=== PATIENT | male | born 1960 | race Hispanic/Latino ===

== ENCOUNTER 2018-08-01 18:51 | Inpatient (IN) | payer OTHER ==
[~2018-08-01] VITALS: Ht 167.6 cm; Wt 72.7 kg
[2018-08-01] MEDS ORDERED: CEFAZOLIN SOD 1 GM/NS 50ML 50 ML IV ONE ×2 (19:44→20:45)
[2018-08-01] MEDS ORDERED: ONDANSETRON HCL INJ 2MG/ML 2ML 2 MG/ML VIAL ONE (19:44)
[2018-08-01] MEDS ORDERED: MORPHINE SULFATE 2 MG/ML SYR 1ML IV STA (19:52)
--- NOTE | 2018-08-01 20:26 | Diagnostic Imaging Report ---
Radiographs of the right foot - 3 views HISTORY: Pain COMPARISON: None available. FINDINGS: Bones: Comminuted intra-articular fracture involving the distal portion of the proximal phalanx of the right first toe. Comminuted displaced intra-articular fracture involving the proximal portion of the middle phalanx of the right second toe. The second toe is subluxed laterally at this joint. Comminuted mid shaft right third middle phalanx fracture. Joints: Scattered degenerative change. No osseous erosion. Posterior and inferior calcaneal bone spurs Soft tissues: Soft tissue swelling IMPRESSION: First, second and third toe fractures as described above with soft tissue swelling. Signed by: Dr. Abdullahi Mccray M.D. on 08/01/2018 8:22 PM
[2018-08-01] MEDS ORDERED: ONDANSETRON HCL INJ 2MG/ML 2ML 2 MG/ML VIAL IV STA (20:38)
[2018-08-01] MEDS ORDERED: TETANUS/DIPHTHERIA TOX ADULT 0.5 ML SYR IM ONE (20:45)
[2018-08-01] MEDS ORDERED: TETANUS/DIPHTHERIA TOX ADULT 0.5 ML SYR ONE (20:45)
[2018-08-01] MEDS ORDERED: KETOROLAC TROMETHAMINE 30 MG/ML VIAL ONE (20:45)
[2018-08-01] MEDS ORDERED: MORPHINE SULFATE INJ 4 MG/ML INJ 1ML IV PRN (21:15)
[2018-08-01] MEDS ORDERED: HYDROMORPHONE 1MG/1ML INJ IV PRN (21:30)
[2018-08-01] MEDS ORDERED: SODIUM CHLORIDE FLUSH 10 ML SYR INJ PRN (21:30)
--- OUTSIDE RECORDS SUMMARY | 2018-08-01 21:44 | XMS REPORT ---
[facility] Address Unknown Phone Unavailable Care Team Providers Care Corrosion Control Technician Name Role Phone Brennan SCHROEDER Unavailable Unavailable Problems This patient has no known problems. Allergies, Adverse Reactions, Alerts This patient has no known allergies or adverse reactions. Medications This patient has no known medications. Results Test Description Test Time Test Comments Text Results Atomic Results Result Comments FOOT 3 VIEW RT - [facility] 2018-08-01 20:19:00 [place] [address] Patient Name: ROBYN KERR MR #: [id number] : 1960 Age/Sex: 57/M Req #: [id number] [facility] Physician: Ordered by: KALEN SCHROEDER MD Report #: [id number] Location: [facility] Room/Bed: Procedure: [id number] HOPD/FOOT 3 VIEW RT - [facility] Exam Date: 08/01/18 Exam Time: 2004 REPORT STATUS: Signed Radiographs of the right foot - 3 views HISTORY: Pain COMPARISON: None available. FINDINGS: Bones: Comminuted intra-articular fracture involving the distal portion of the proximal phalanx of the right first toe. Comminuted displaced intra-articular fracture involving the proximal portion of the middle phalanx of the right second toe. The second toe is subluxed laterally at this joint. Comminuted mid shaft right third middle phalanx fracture. Joints: Scattered degenerative change. No osseous erosion. Posterior and inferior calcaneal bone spurs Soft tissues: Soft tissue swelling IMPRESSION: First, second and third toe fractures as described above with soft tissue swelling. Signed by: Dr. Abdullahi Mccray M.D. on 08/01/2018 8:22 PM Dictated By: ABDULLAHI MCCRAY MD, MD 21 Transcribed By: JOSÉ on 08/01/182021 COPY TO: KALEN SCHROEDER MD
[2018-08-01 21:59] VITALS: BP 138/74
--- NOTE | 2018-08-01 21:59 | NUR ---
RECEIVED PATIENT FROM [facility]. PATIENT IS A&OX3. LUNG SOUNDS CLEAR. BOWEL SOUNDS ACTIVE. L AC 20G IV ASYMPTOMATIC, INTACT, AND PATENT. PAIN RATED AT 7/10. R GREAT TOE, 2ND, AND 3RD TOES BRUISED. CAP REFILL <3 SEC. MINIMAL SWELLING NOTED. NO S&S OF DISTRESS NOTED. BED LOCKED IN LOWEST POSITION, SIDE RAILS UP X2, CALL LIGHT IN REACH.
[2018-08-01] MEDS: ONDANSETRON HCL INJ 2MG/ML 2ML 2 MG/ML VIAL IV PRN (22:47)
[2018-08-01] MEDS: HYDROMORPHONE 2MG/ML 2 MG/ML ML IV PRN (22:47)
[2018-08-02] VITALS: BP 126/69
--- NOTE | 2018-08-02 00:50 | NUR ---
PATIENT STATES PAIN IS SLIGHTLY BETTER, BUT STILL RATES AT 7/10. PATIENT STATED HE WANTS TO WAIT ON GETTING NEXT DOSE OF PAIN MEDICATION IT DID NOT DO MUCH AND JUST TRY TO SLEEP.
[2018-08-02] MEDS ORDERED: SODIUM CHLORIDE 0.9% 250ML 250 ML ONE (00:52)
[2018-08-02] MEDS: CEFAZOLIN SOD 1 GM/NS 50ML 50 ML IV SCH ×3 (01:01→12:20)
[2018-08-02 04:00] VITALS: BP 115/67
[2018-08-02] MEDS: HYDROMORPHONE 2MG/ML 2 MG/ML ML IV PRN ×4 (04:40→14:55)
--- NOTE | 2018-08-02 04:40 | NUR ---
PATIENT STATES PAIN IS 7/10. BRISK CAP REFILL TO R TOES. NO S&S OF DISTRESS NOTED.
[2018-08-02] MEDS: ONDANSETRON HCL INJ 2MG/ML 2ML 2 MG/ML VIAL IV PRN ×4 (04:49→15:06)
[2018-08-02 06:41] LABS: BASOPHILS % 0.4 % (0.0-1.0); EOSINOPHILS # (AUTO) 0.1 (0.0-0.4); EOSINOPHILS % 1.3 % (0.0-6.0); HEMATOCRIT 50.9 % (38.2-49.6); HEMOGLOBIN 17.4 g/dL (14.0-18.0); LYMPHOCYTES % 26.9 % (18.0-39.1); MEAN CORPUSCULAR HEMOGLOBIN 29.7 pg (28-32); MEAN CORPUSCULAR HGB CONC 34.2 g/dL (31-35); MEAN CORPUSCULAR VOLUME 86.9 fL (81-99); MONOCYTES % 8.6 % (4.4-11.3); NEUTROPHILS % 62.4 % (38.7-80.0); PLATELET COUNT 236 x10e3/uL (140-360); RED BLOOD COUNT 5.86 x10e6/uL (4.3-5.7); RED CELL DISTRIBUTION WIDTH 12.9 % (11.7-14.4)
[2018-08-02 06:48] LABS: INR 0.89; PARTIAL THROMBOPLASTIN TIME 29.2 seconds (23.8-35.5); PROTHROMBIN TIME 12.5 seconds (11.9-14.5)
[2018-08-02 06:52] LABS: ANION GAP 11.4 mmol/L (8-16); BLOOD UREA NITROGEN 15 mg/dL (7-26); BUN/CREATININE RATIO 18 (6-25); CARBON DIOXIDE 21 mmol/L (22-29); CHLORIDE 108 mmol/L (98-107); CREATININE, SERUM 0.82 mg/dL (0.72-1.25); EST GLOMERULAR FILTRATION RATE > 60 ML/MIN (60-); GLUCOSE 109 mg/dL (74-118); POTASSIUM 4.4 mmol/L (3.5-5.1); SODIUM 136 mmol/L (136-145)
--- NOTE | 2018-08-02 07:00 | NUR ---
bedside rounds complete no distress noted updated on poc voiced understanding, denies pain at this time, right foot with bruising to 2nd and 3rd toe, wound noted to right lateral foot, l ac 20g no ss of infiltration noted, no other co vocied call light in reach will continue to monitor
[2018-08-02 07:27] VITALS: BP 120/70
[2018-08-02 09:30] VITALS: BP 120/70
--- NOTE | 2018-08-02 09:30 | NUR ---
ASSESSMENT COMPLETE NO DISTRESS NOTED, RIGHT BIG TOE, 2ND AND 3RD TOES NOTED WITH BRUISING, COOL TO TOUCH,QUICK REFILL NOTED TO TOES, PEDAL PULSES PALPABLE, L AC 20G SL NO SS OF INFILTRATION NOTED, DENIES PAIN AT THIS TIME, CALL LIGHT IN REACH WILL CONTINUE OT MONITOR
--- NOTE | 2018-08-02 11:20 | NUR ---
Per Dr Funmilayo escalante to DC from Podiatry standpoint
--- NOTE | 2018-08-02 12:46 | NUR ---
wound care performed as per ordered, right foot cleansed with normal saline, antibiotic ointment applied to wound, covered with 4x4 gauze, kerlix and secured with toño wrap, pt tolerated well
--- NOTE | 2018-08-02 12:50 | NUR ---
ortho boot and crutches provided as per dr harvey orders. pt to be instructed by physical therapy for crutch training
[2018-08-02 13:00] VITALS: BP 125/70
--- NOTE | 2018-08-02 14:10 | History and Physical ---
REASON FOR CONSULTATION: Comminuted fractures of digits 1, 2, and 3 right foot with possible open fracture. HISTORY OF PRESENT ILLNESS: This is a 57-year-old male, who presented to the ER for possible fractures of the right foot. He states that he dropped the heavy object at work on his right foot, which resulted in significant pain and swelling in the right foot of first, second, and third digits. He presented to the ER for significant pain and swelling. On admission, he denied any nausea, fever, chills, vomiting, or night sweats, however, he does admit to significant amount of pain. PAST MEDICAL HISTORY: None. PAST SURGICAL HISTORY: None. SOCIAL HISTORY: The patient denies any tobacco abuse, alcohol use, or any illicit drug use at this point. ALLERGIES: NO KNOWN DRUG ALLERGIES. MEDICATIONS: See MAR. LABORATORY DATA: Reviewed. RADIOGRAPHICS: Reviewed, which showed a comminuted fracture of the right foot hallux proximal phalanx, intra-articular; comminuted displaced intra-articular fracture involving the proximal portion of the middle phalanx of the second toe, and also a right third digit middle phalanx shaft fracture. There is no soft tissue emphysema or cortical erosions noted at this time. PHYSICAL EXAMINATION: VITAL SIGNS: Reviewed. GENERAL: The patient was seen lying in bed, in no acute distress. Dressings are clean, dry, and intact to the right foot. HEAD: Normocephalic. CHEST: Denies any chest pain. LUNGS: Denies any shortness of breath. ABDOMEN: Soft and nontender. EXTREMITIES: Lower extremity evaluation, palpable pulses to the dorsalis pedis, posterior tibial pulse. There was significant edema with cyanotic discoloration noted of the right hallux, however, cap refill time is less than 5 seconds for digits 1, 2, and 3. The right hallux is noted to be cool to touch, however, the patient does state he is able to move and feel the right hallux. Cyanotic discoloration is noted up to the metatarsophalangeal joint of the first digit and approximately the distal interphalangeal joint of the second toe. Significant pain on palpation and range of motion of digits 1, 2, and 3 right foot. ASSESSMENT: Comminuted fractures with laceration of the right foot digits 1, 2, and 3. PLAN: At this point, I would recommend a mupirocin with a dry dressing to the right foot. The patient is to be absolutely non-weightbearing to the right lower extremity. I have discussed the fact that there may be an underlying arterial injury to the right hallux. At this point, we will keep the patient non-weightbearing, wait and see if the area begins to demarcate. We will plan for surgery, however, surgery will be postpone for at least 10 days to reduce the swelling, also to see if the first digit is salvageable or not. At this point, I have recommended discharge and followup with me in clinic. The patient is to be non-weightbearing in a fracture boot with crutches. I have recommended physical therapy to come and train the patient non-weightbearing. Resume regular diet. The patient will also be discharged home with oral antibiotics, clindamycin and Cipro x1 week and Randolph 7.5 mg for pain control. At this time, Podiatry will sign off. Please reconsult if services are required. Thank you again for including in the care of this patient. ABBY Dumont/TAHIRA /[id number]
--- NOTE | 2018-08-02 15:18 | NUR ---
spoke with Dr Cilfford re: discharge, new orders noted.
[2018-08-02] MEDS ORDERED: NORCO 7.5-3251 EACH PO (15:57)
[2018-08-02] MEDS ORDERED: CIPRO500 MG PO (15:58)
[2018-08-02] MEDS ORDERED: CLINDAMYCIN HC150 MG PO (15:58)
[2018-08-03] MEDS ORDERED: MUPIROCIN 2% OINT 22 GM TUBE TOP SCH (09:00)
--- NOTE | 2018-08-03 09:48 | Discharge Summary ---
DISCHARGE DIAGNOSIS: Fracture of the 1st great toes with a work-related injury, crush injury. HISTORY OF PRESENT ILLNESS AND HOSPITAL COURSE: See hospital chart for full details. The patient is a 57-year-old gentleman, who sustained a falling object onto his right foot that fractured and crushed the first three toes of his right foot. He was admitted for pain control and he was seen by Dr. Mello, who accepted the patient from an outside facility and reviewed the case with the patient and deemed the patient not needing surgery at the moment, so he is able to be discharged home with some pain medicines and walking boot per Dr. Mello and he will follow up with him on Saturday the day after for further evaluation and treatment. Please see hospital chart for full details. MD AMY Rowe/TAHIRA /[id number]
== END 2018-08-02 16:17 | disposition home or self-care (01) | DRG 914 ==
LOC: FSED 18:51 → ERHOLD 21:36 → MED/SURG 22:02
PROVIDERS: ADMIT Internal Medicine; ATTEND Internal Medicine
PROC: 3E0234Z Introduction of Serum, Toxoid and Vaccine into Muscle, Percutaneous Approach (ICD-10-PCS; principal; 2018-08-01)
DX: S97.111A Crushing injury of right great toe, initial encounter (principal); S92.411B Displaced fracture of proximal phalanx of right great toe, initial encounter for open fracture; S92.521A Displaced fracture of middle phalanx of right lesser toe(s), initial encounter for closed fracture; S97.121A Crushing injury of right lesser toe(s), initial encounter; W31.89XA Contact with other specified machinery, initial encounter; Y93.89 Activity, other specified; F17.210 Nicotine dependence, cigarettes, uncomplicated; Y92.69 Other specified industrial and construction area as the place of occurrence of the external cause; Y99.0 Civilian activity done for income or pay; Z23 Encounter for immunization
CPT/HCPCS: 36415; 80048; 80053; 82948; 85025; 85610; 85730; 90714; 99284; J0690; J1170; J1885; J2270; J2405; J7050

== ENCOUNTER → 2018-08-12 | Day surgery (SDC) | payer OTHER ==
--- NOTE | 2018-08-06 13:33 | Diagnostic Imaging Report ---
EXAMINATION: PA and lateral views of the chest. COMPARISON: None CLINICAL HISTORY: Preoperative study for orthopedic procedure DISCUSSION: Lines/tubes: None. Lungs: The lungs are well inflated and clear. There is no evidence of pneumonia or pulmonary edema. Pleura: There is no pleural effusion or pneumothorax. Heart and mediastinum: The cardiomediastinal silhouette is normal. Bones and soft tissues: No acute bony abnormalities. Degenerative changes in the thoracic spine IMPRESSION: No acute cardiopulmonary abnormalities. Signed by: Dr. Omar Vee M.D. on 08/06/2018 1:30 PM
[~2018-08-12] MED LIST: ACETAMINOPHEN 1000 MG/100 ML IV ONE; BUPIVACAINE HCL 0.5% INJ 30 ML VIAL INJ ONE; CEFAZOLIN SOD 1 GM/NS 50ML 50 ML IV ONE; CIPRO500 MG PO; CLINDAMYCIN HC150 MG PO; DEXAMETHASONE SOD PHOS INJ 4 MG/ML VIAL ONE; FENTANYL CITRATE/PF 100MCG/2 ML INJ ONE; LIDOCAINE HCL 2% LOCAL INJ 5 ML SDV VIAL INJ ONE; MEPERIDINE HCL INJ 25 MG/ML VIAL ONE; MIDAZOLAM HCL 2 MG/2 ML VIAL ONE; MORPHINE SULFATE INJ 10 MG/ML ONE; MUPIROCIN 2% OINT 22 GM TUBE ONE; NORCO 7.5-3251 EACH PO; ONDANSETRON HCL INJ 2MG/ML 2ML 2 MG/ML VIAL ONE; PROPOFOL IV EMULSION 10 MG/ML 20 ML VIAL ONE; SEVOFLURANE INHAL SOLN 250 ML PEN BTL ONE
[2018-08-12 14:45] VITALS: BP 128/81
--- NOTE | 2018-08-14 20:38 | Operative Report ---
DATE OF PROCEDURE: 08/12/2018 SURGEON: Omar Rodríguez MD OIL SEPARATOR: Yandel Medeiros PREOPERATIVE DIAGNOSES: Right great toe proximal phalanx fracture, dislocation of right second toe PIP joint. PROCEDURE: Closed reduction and percutaneous pin fixation of right great toe and right second toe. INDICATIONS: The patient is a 57-year-old gentleman, who sustained a crush injury to his right forefoot. He sustained a markedly displaced fracture of the right great toe proximal phalanx. He also sustained a dislocation of the second toe PIP joint. There was marked swelling and bruising. We have discussed the findings and options and recommend surgical stabilization. The risks and benefits of pin fixation were explained. He stated he understood and wished to proceed. PROCEDURE IN DETAIL: The patient was brought to the operating room and placed under general anesthetic. His right lower extremity was prepped and draped in a sterile manner. A preoperative time-out was performed. The previous fracture blisters were debrided. A 0.062 K-wire was inserted through the distal phalanx of the right great toe. This was advanced across the IP joint. This was used to joystick the distal fracture into a more reduced position. The pin was advanced across the fracture site. Intraoperative x-rays confirmed satisfactory alignment. The pin was cut short and capped. The second toe was then attended in a similar fashion. The PIP joint was previously dislocated. This was digitally reduced. The pin was advanced across the joint. Intraoperative x-rays confirmed satisfactory reduction of both the great toe fracture and the dislocated PIP joint of the second toe. A sterile bandage and a splint were applied. The patient was extubated and transported to the recovery room in stable condition. There was no blood loss and all needle and sponge counts were correct. Omar Rodríguez MD DR/TAHIRA /[id number]
== END | disposition home or self-care (01) ==
LOC: OR 09:27
PROVIDERS: ATTEND Specialist
DX: S92.411A Displaced fracture of proximal phalanx of right great toe, initial encounter for closed fracture (principal); S93.114A Dislocation of interphalangeal joint of right lesser toe(s), initial encounter; S92.511B Displaced fracture of proximal phalanx of right lesser toe(s), initial encounter for open fracture; F17.210 Nicotine dependence, cigarettes, uncomplicated; W20.8XXA Other cause of strike by thrown, projected or falling object, initial encounter; Y93.89 Activity, other specified; Y92.89 Other specified places as the place of occurrence of the external cause; Y99.0 Civilian activity done for income or pay; Z01.810 Encounter for preprocedural cardiovascular examination; Z01.818 Encounter for other preprocedural examination
CPT/HCPCS: 28496; 28515; 71046; 76000; 93005; C1713; J0131; J0690; J1100; J2001; J2175; J2250; J2270; J2405; J2704

== ENCOUNTER 2018-08-26 16:20 | Inpatient (IN) | payer OTHER ==
[~2018-08-26] VITALS: Ht 167.6 cm; Wt 70.4 kg
[~2018-08-26 16:20] MED LIST changes: -ACETAMINOPHEN 1000 MG/100 ML IV ONE; -BUPIVACAINE HCL 0.5% INJ 30 ML VIAL INJ ONE; -CEFAZOLIN SOD 1 GM/NS 50ML 50 ML IV ONE; -DEXAMETHASONE SOD PHOS INJ 4 MG/ML VIAL ONE; -FENTANYL CITRATE/PF 100MCG/2 ML INJ ONE; -LIDOCAINE HCL 2% LOCAL INJ 5 ML SDV VIAL INJ ONE; -MEPERIDINE HCL INJ 25 MG/ML VIAL ONE; -MIDAZOLAM HCL 2 MG/2 ML VIAL ONE; -MORPHINE SULFATE INJ 10 MG/ML ONE; -MUPIROCIN 2% OINT 22 GM TUBE ONE; -ONDANSETRON HCL INJ 2MG/ML 2ML 2 MG/ML VIAL ONE; -PROPOFOL IV EMULSION 10 MG/ML 20 ML VIAL ONE; -SEVOFLURANE INHAL SOLN 250 ML PEN BTL ONE
[2018-08-26] MEDS ORDERED: SODIUM CHLORIDE 0.9% 1000ML 1,000 ML IV STA (16:42)
[2018-08-26] MEDS ORDERED: HYDROCODONE/APAP 10MG-325MG TAB PO NR (17:00)
[2018-08-26 17:55] LABS: BASOPHILS % 0.3 % (0.0-1.0); EOSINOPHILS # (AUTO) 0.1 (0.0-0.4); EOSINOPHILS % 1.3 % (0.0-6.0); HEMATOCRIT 49.2 % (38.2-49.6); LYMPHOCYTES # (AUTO) 2.9 (1.0-3.2); LYMPHOCYTES % 28.4 % (18.0-39.1); MEAN CORPUSCULAR HEMOGLOBIN 29.4 pg (28-32); MEAN CORPUSCULAR HGB CONC 34.6 g/dL (31-35); MEAN CORPUSCULAR VOLUME 85.1 fL (81-99); MONOCYTES # (AUTO) 0.6 (0.2-0.8); MONOCYTES % 6.3 % (4.4-11.3); NEUTROPHILS # (AUTO) 6.4 (2.1-6.9); NEUTROPHILS % 63.4 % (38.7-80.0); PLATELET COUNT 306 x10e3/uL (140-360); RED BLOOD COUNT 5.78 x10e6/uL (4.3-5.7); RED CELL DISTRIBUTION WIDTH 12.5 % (11.7-14.4)
--- NOTE | 2018-08-26 18:00 | Diagnostic Imaging Report ---
Foot complete CPT code: 57925 Indication: ^r/o osteomyelitis ^[id number] ^[id number] Technique: Portable A.P., oblique and lateral views of the right foot obtained. Comparison: X-rays 08/01/2018 Findings: Calcaneus is intact with small posterior plantar spurs. Distal tibia and fibula are intact. The talus is normal in morphology. The midfoot is intact. There are K wires transfixing the first and second digits extending from the distal to the proximal phalanges. These transfix fractures into near-anatomic alignment. The hardware is intact. No evidence of periosteal new bone formation. Digits 3 through 5 are intact and normal in morphology. IMPRESSION: Postoperative changes of the first and second digits as described above. No radiographic evidence of osteomyelitis. Signed by: Dr. Frederick Preciado MD on 08/26/2018 5:57 PM
[2018-08-26 18:13] LABS: ALANINE AMINOTRANSFERASE 56 IU/L (0-55); ALBUMIN 4.1 g/dL (3.5-5.0); ALBUMIN/GLOBULIN RATIO 1.2 (0.8-2.0); ALKALINE PHOSPHATASE 125 IU/L (40-150); ANION GAP 12.7 mmol/L (8-16); BLOOD UREA NITROGEN 12 mg/dL (7-26); BUN/CREATININE RATIO 15 (6-25); CALCIUM 10.9 mg/dL (8.4-10.2); CARBON DIOXIDE 26 mmol/L (22-29); CHLORIDE 101 mmol/L (98-107); CREATININE, SERUM 0.79 mg/dL (0.72-1.25); EST GLOMERULAR FILTRATION RATE > 60 ML/MIN (60-); GLUCOSE 118 mg/dL (74-118); POTASSIUM 3.7 mmol/L (3.5-5.1); SODIUM 136 mmol/L (136-145)
[2018-08-26] MEDS ORDERED: ONDANSETRON HCL INJ 2MG/ML 2ML 2 MG/ML VIAL IV NR (18:13)
[2018-08-26] MEDS ORDERED: ONDANSETRON HCL INJ 2MG/ML 2ML 2 MG/ML VIAL IV PRN (18:15)
[2018-08-26] MEDS ORDERED: HYDROMORPHONE 2MG/ML 2 MG/ML ML IV PRN (18:30)
[2018-08-26] MEDS ORDERED: ACETAMINOPHEN 325 MG TAB PO PRN (18:45)
[2018-08-26] MEDS: CEFEPIME 1GM/NS 0.9% 50 ML 50 ML IV SCH (18:48)
[2018-08-26] MEDS: SODIUM CHLORIDE 0.9% 1000ML 1,000 ML IV SCH (18:49)
[2018-08-26 19:09] LABS: BILIRUBIN,URINE NEGATIVE (NEGATIVE); CLARITY,URINE SL CLOUDY (CLEAR); COLOR,URINE YELLOW (YELLOW); KETONES,URINE NEGATIVE (NEGATIVE); LEUKOCYTE ESTERASE ,URINE NEGATIVE (NEGATIVE); NITRITE,URINE NEGATIVE (NEGATIVE); PROTEIN,URINE DIPSTICK NEGATIVE (NEGATIVE); URINE UROBILINOGEN 0.2 mg/dL (0.2 - 1)
[2018-08-26 19:23] LABS: BACTERIA,URINE MODERATE /HPF; CALCIUM OXALATE CRYSTALS,UR MANY (FEW)
--- NOTE | 2018-08-26 20:58 | NUR ---
Report Given to ZEESHAN Meyer
[2018-08-26] MEDS: VANCOMYCIN 1GM/NS 250 ML 250 ML IV SCH (21:12)
[2018-08-26 21:45] VITALS: BP 134/67
--- NOTE | 2018-08-26 21:45 | NUR ---
RECEIVED PATIENT FROM ER. PATIENT IS AAOX3. RESP EVEN AND UNLABORED. NO ACUTE DISTRESS NOTED. RIGHT FOOT CELLULITIS WITH PINS ATTACHED TO 1ST AND 2ND TOES, DRY GANGRENE NOTED. POST OPERATION 08/12 NOTED. PATIENT C/O PAIN TO RIGHT FOOT, WILL MEDICATE PER MAY. ORIENTED PATIENT TO ROOM. FAMILY AT BED SIDE. CALL LIGHT WITHIN REACH. INSTRUCT TO CALL FOR ASSISTANCE. BED LOW/LOCKED. CONTINUE TO MONITOR CLOSELY
[2018-08-26 21:55] VITALS: BP 134/67
[2018-08-26] MEDS: HYDROCODONE/APAP 5MG-325MG TAB PO PRN (23:06)
[2018-08-27] VITALS (9 sets, daily range): BP systolic 119–143; BP diastolic 60–78
--- NOTE | 2018-08-27 01:54 | History and Physical ---
CHIEF COMPLAINT: Right toes concern for wound infection. HISTORY OF PRESENT ILLNESS: This is a 57-year-old male, with no past medical history, who comes in after having a crush injury to his right foot that occurred several weeks ago. The patient was admitted here and had pins placed by Dr. Rodríguez on his right big toe and his right 2nd toe. At that time, he developed an infection requiring Podiatry to evaluate him. The patient was evaluated by Podiatry recently and was given some antibiotics, but apparently he failed oral antibiotic therapy and he was sent back to Podiatry to evaluate again today. Today, Podiatry felt like the foot has concern for worsening infection, concerning for an abscess, and sent into the [facility] for further evaluation of imaging and IV antibiotic therapy. The patient was seen and evaluated at bedside on the medical floor. In the ER, he is currently doing well with no other issues. His pain is still severe, though he is able to tolerate with IV Dilaudid. REVIEW OF SYSTEMS: Pertinent Positives: Just crush injury on the right foot. Pertinent negatives: Denies any chest pain, palpitation, nausea, vomiting, diarrhea, dysuria, hematuria, frequency, urgency, lightheadedness, dizziness, abdominal pain, headaches, shortness of breath, cough, congestion, fever, or any other complaints. Rest of the 14-point review of systems are reviewed with the patient and are negative. ALLERGIES: NO KNOWN DRUG ALLERGIES. HOME MEDICATIONS: Currently none. PAST MEDICAL HISTORY: None. Just recent crush injury to the right foot. SURGICAL HISTORY: He had pins placed in the 1st big toe of the right foot and 2nd toe of the right foot. FAMILY HISTORY: Hypertension and diabetes. SOCIAL HISTORY: No drugs. No alcohol. Does not smoke. He is . Good social support. PHYSICAL EXAMINATION: VITAL SIGNS: Temperature is 98.3, pulse 70, respiratory rate is 16, blood pressure 126/76, and pulse ox 96% on room air. GENERAL: Not in acute distress, alert, and oriented x3. Cooperative on examination. HEENT: Head is normocephalic and atraumatic. Eyes; pupils equal, round, and reactive to light bilaterally. Extraocular movements are intact bilaterally. NECK: Supple with good range of motion throughout. No evidence of any erythema or exudates in the posterior pharynx. Has poor dentition. PULMONARY: Clear to auscultation bilaterally. No wheezing. No rales. No rhonchi. No crackles are appreciated. CARDIOVASCULAR: Positive S1, S2. No murmurs, rubs, or gallops appreciated. ABDOMEN: Soft, nondistended, nontender to palpation. Bowel sounds present. MUSCULOSKELETAL: Strength is 5/5 throughout. No evidence of any muscle deficits on examination. No weakness appreciated. NEUROLOGICAL: Cranial nerves II through XII grossly intact. No evidence of any neurological deficits on exam. SKIN: Intact. Warm to touch. Good cap refill. PSYCHIATRIC: Normal affect and mood. EXTREMITIES: No edema. Good range of motion throughout. LAB FINDINGS: Show white count 10, hemoglobin 13, hematocrit 49, and platelets of 306. Chemistry; sodium 136, potassium 3.7, chloride 101, bicarb 26, anion gap of 12, BUN is 12, creatinine 0.79, glucose 118, calcium is 10.9. Lactic acid was 8.9, which was normal. LFTs were normal. Albumin 4.1. Microbiology, blood cultures are pending. IMAGING STUDIES: Foot x-ray shows just postoperative changes of the 1st and 2nd digits of the right foot with no evidence of any osteomyelitis. IMPRESSION: 1. Right foot crush injury status post pinning of the right big toe and right 2nd toe, now concerning for underlying infection of the right foot. 2. Recent crush injury. PLAN: At this time, we will start on IV antibiotics with vancomycin and cefepime. Get MRI of the foot with and without contrast to rule out any type of osteomyelitis or abscess. Consult with Podiatry and Infectious Disease. Pain control with IV Dilaudid. Resume same home medications once available. Put on Lovenox for DVT prophylaxis. We will continue to monitor the patient very closely and consult with Podiatry and ID. MD CARLOS Rogers/TAHIRA /[id number]
[2018-08-27] MEDS: SODIUM CHLORIDE 0.9% 1000ML 1,000 ML IV SCH ×3 (02:20→18:12)
[2018-08-27] MEDS: CEFEPIME 1GM/NS 0.9% 50 ML 50 ML IV SCH ×2 (04:46→16:48)
[2018-08-27 05:01] LABS: BASOPHILS % 0.5 % (0.0-1.0); EOSINOPHILS # (AUTO) 0.2 (0.0-0.4); EOSINOPHILS % 2.2 % (0.0-6.0); HEMATOCRIT 42.9 % (38.2-49.6); HEMOGLOBIN 14.3 g/dL (14.0-18.0); LYMPHOCYTES # (AUTO) 2.4 (1.0-3.2); MEAN CORPUSCULAR HEMOGLOBIN 28.7 pg (28-32); MEAN CORPUSCULAR HGB CONC 33.3 g/dL (31-35); MONOCYTES # (AUTO) 0.7 (0.2-0.8); MONOCYTES % 9.3 % (4.4-11.3); NEUTROPHILS # (AUTO) 4.6 (2.1-6.9); NEUTROPHILS % 57.7 % (38.7-80.0); PLATELET COUNT 241 x10e3/uL (140-360); RED BLOOD COUNT 4.99 x10e6/uL (4.3-5.7); RED CELL DISTRIBUTION WIDTH 12.5 % (11.7-14.4)
[2018-08-27 05:21] LABS: BLOOD UREA NITROGEN 13 mg/dL (7-26); BUN/CREATININE RATIO 16 (6-25); CALCIUM 9.6 mg/dL (8.4-10.2); CARBON DIOXIDE 26 mmol/L (22-29); CHLORIDE 109 mmol/L (98-107); EST GLOMERULAR FILTRATION RATE > 60 ML/MIN (60-); GLUCOSE 102 mg/dL (74-118); SODIUM 137 mmol/L (136-145)
[2018-08-27] MEDS: VANCOMYCIN 1GM/NS 250 ML 250 ML IV SCH ×2 (05:45→16:48)
--- NOTE | 2018-08-27 06:00 | NUR ---
PAGED DR CUNHA FOR CONSULT
--- NOTE | 2018-08-27 07:00 | NUR ---
BEDSIDE SHIFT REPORT RECEIVED FROM DAVID BYERS. PT DENIES NEEDS AT THIS TIME.
[2018-08-27] MEDS: HYDROCODONE/APAP 5MG-325MG TAB PO PRN ×3 (07:36→22:40)
[2018-08-27] MEDS ORDERED: GADOBENATE DIMEGLUMINE 1 ML IV ONE (11:11)
--- NOTE | 2018-08-27 13:57 | Diagnostic Imaging Report ---
TECHNIQUE: Magnetic resonance imaging of the right foot was performed without and with injected contrast. 14 mL of MultiHance HISTORY: Pain COMPARISON: None available. DISCUSSION: Prior transverse fracture of the proximal phalanx hallux, dislocation with probable fracturing at the proximal interphalangeal joint second toe, and transverse fracture of the proximal phalanx third toe. Prior percutaneous pinning of the first and second toes status post removal. The fracture sites are incompletely healed. The proximal interphalangeal joint second toe is normal alignment. Bone marrow edema within the phalanges of the first and second toe and proximal phalanx of the third toe. In the setting of fracturing and recent percutaneous pinning and removal, osteomyelitis cannot be evaluated for by MRI signal. No soft tissue fluid collections. No sinus tracts. IMPRESSION: Bone marrow edema within the phalanges of the first and second toe and middle phalanx of the third toe. In the setting of fractures and percutaneous pinning and removal, evaluation for osteomyelitis by MRI is limited. No abscess. Signed by: Dr. Ernie Honeycutt M.D. on 08/27/2018 1:54 PM
--- NOTE | 2018-08-27 14:31 | Progress Note ---
DATE: 08/27/2018 Medicine Progress Note SUBJECTIVE: The patient is scheduled for MRI of the foot today. No overnight events. PHYSICAL EXAMINATION: VITAL SIGNS: Temperature 96.9, pulse 85, respiratory rate is 15, blood pressure 130/63, pulse ox 99% on room air. GENERAL: Not in acute distress, alert, and oriented x3. Cooperative on examination. HEENT: Head is normocephalic and atraumatic. Eyes; pupils equal, round, and reactive to light bilaterally. Extraocular movements are intact bilaterally. NECK: Supple with good range of motion throughout. No evidence of any erythema or exudates in the posterior pharynx. Has poor dentition. PULMONARY: Clear to auscultation bilaterally. No wheezing. No rales. No rhonchi. No crackles are appreciated. CARDIOVASCULAR: Positive S1, S2. No murmurs, rubs, or gallops appreciated. ABDOMEN: Soft, nondistended, nontender to palpation. Bowel sounds present. MUSCULOSKELETAL: Strength is 5/5 throughout. No evidence of any muscle deficits on examination. No weakness appreciated. NEUROLOGICAL: Cranial nerves II through XII grossly intact. No evidence of any neurological deficits on exam. SKIN: Intact. Warm to touch. Good cap refill. PSYCHIATRIC: Normal affect and mood. EXTREMITIES: No edema. Good range of motion throughout. LAB FINDINGS: Show white count of 7.8, hemoglobin 14, hematocrit is 43, platelets of 241. Chemistry; sodium 137, potassium 4, chloride 109, bicarb 26, anion gap of 6, BUN is 13, creatinine 0.8, calcium is 9.6. LFTs were normal. Urinalysis negative. MICROBIOLOGY: Urine culture pending. Blood cultures pending. MRI of the foot pending. IMPRESSION: 1. Right foot crush injury, status post pinning of the right big toe and right 2nd toe concerning for underlying infection of the right foot. 2. Recent crush injury. PLAN: At this time, pins have been removed on the right foot. MRI of the foot with and without contrast has been ordered. The patient will be on IV vancomycin and cefepime. Podiatry and ID have been consulted. We will continue with IV Dilaudid for pain control. Podiatry and ID are closely watching the patient. He is on Lovenox for DVT prophylaxis. MD CARLOS Rogers/TAHIRA /[id number]
--- NOTE | 2018-08-27 16:27 | NUR ---
WOUND CARE NURSE INITIAL CONSULTATION. 57 YEAR OLD MALE ADMITTED TO [facility] FROM [facility]OUND CARE FOR CELLULITIS, DRY GANGRENE AND FAILURE OUTPATIENT TREATMENT. PT HAD A CRUSH INJURY TO RIGHT HALLUX, RIGHT SECOND AND THIRD TOE AT WORK ON AUGUST 01. August PT HAD PINS TO RIGHT HALLUX AND RIGHT SECOND TOE BY DR. ZALDIVAR. PT DEVELOPED AN INFECTION AND REQUIRED PODIATRY CONSULT ON AUGUST 22. ORAL ABX INITIATED, HOWEVER PT'S CALLED WOUND CARE CLINIC YESTERDAY WITH CONCERN OF WOUNDS WORSENING. DR. HUGHES WITH CONCERN OF WORSENING INFECTION AND ABSCESS. RIGHT HALLUX AND RIGHT SECOND TOE ARE NECROTIC. EDEMA EXTENDS FROM FOREFOOT TO PLANTAR FOOT. STRONG PALPABLE DP AND PT PULSES NOTED. BLOOD CX PENDING. MRI NEGATIVE FOR ABSCESS, OSTEOMYELITIS EVALUATION BY MRI IS LIMITED. POSITIVE WOUND CX ARTERIAL DUPLEX PENDING. RECOMMENDATIONS: CONTINUE WITH CURRENT WOUND CARE ORDERS (BETADINE WET TO DRY TO RIGHT FOOT/TOES WOUNDS) FROM DR. HUGHES. UPON DC, PT TO RESUME HBO EVALUATION AND TCOM ORDERS. THANKS FOR THIS CONSULTATION. Addendum: 08/27/18 at 1642 by Kamilla Starr RN Amended: Links added.
[2018-08-27] MEDS ORDERED: ONDANSETRON HCL 4 MG ORAL DISINTEGRATING TAB PO PRN (16:45)
[2018-08-27] MEDS: ENOXAPARIN SOD INJ 40 MG/0.4 ML SYR SC SCH (16:48)
--- NOTE | 2018-08-27 22:59 | Consultation ---
DATE OF CONSULTATION: 08/27/2018 REASON FOR CONSULTATION: Infection of the foot. HISTORY OF PRESENT ILLNESS: This patient, who is a 57-year-old German male back in August 01, apparently at work, he sustained a crush injury. He went to see Dr. Rodríguez. Leonard was placed in the right 2nd toe and right big toe, did have redness and swelling. He was seeing Podiatry. He is admitted here for further debridement. I was asked to see him. The patient was lying in bed comfortably. He denies any fever, chills, nausea, vomiting, or diarrhea. The plan for him to have debridement tomorrow. PAST MEDICAL HISTORY: He denies. PAST SURGICAL HISTORY: He denies. ALLERGIES: NKA. SOCIAL HISTORY: There is no smoking, drug abuse, or alcohol abuse. FAMILY HISTORY: Otherwise noncontributory. REVIEW OF SYSTEMS: HEENT: Negative. PULMONARY: Negative. CARDIAC: Negative. : Negative. SKIN: There is no rash. All other symptoms within normal limits. LABORATORY DATA: White count 10. Sodium 136, potassium of 3.7. Cultures are still pending. An x-ray of the foot and MRI of the foot was done and showed there is bone marrow edema within the phalanges of the first and 2nd middle phalanx of the 3rd toe, history of fraction, percutaneous pinning. PHYSICAL EXAMINATION: GENERAL: He is currently alert, oriented, does not seem to be in acute distress. VITAL SIGNS: Stable, currently afebrile. HEENT: Normocephalic. He does not appear icteric. NECK: Supple. CHEST: Clear bilateral. HEART: S1, S2. ABDOMEN: Soft. Bowel sounds present. No tenderness. EXTREMITIES: No edema. SKIN: No rash. The right foot, there is erythema and edema noted. IMPRESSION: Cellulitis of the right foot. The patient had crush injury, then placement of a nail to stabilize the toe, concerned about the infection in the toe, concerned about the infection of the hardware. We will put the patient on vancomycin and cefepime with the plan for him to go debridement tomorrow. I would recommend to send bone from the surgery for culture and sensitivity. I would also recommend to obtain sed rate, C-reactive protein. We will follow vancomycin trough. Recheck CBC. Recheck Chem panel. Work-related injury got infected. We will follow. MD MILENA Torres /[id number]
[2018-08-28] VITALS (7 sets, daily range): BP systolic 114–130; BP diastolic 60–81
[2018-08-28] MEDS: SODIUM CHLORIDE 0.9% 1000ML 1,000 ML IV SCH ×3 (02:05→15:16)
--- NOTE | 2018-08-28 02:09 | Consultation ---
DATE OF CONSULTATION: 08/27/2018 REASON FOR CONSULTATION: Right foot cellulitis. HISTORY OF PRESENT ILLNESS: The patient is a 57-year-old male known to me through the [facility], where I have seen him in the past few weeks. The patient sustained a crush injury at work on 07/12/2018 when a rail car fell on the top of his right foot weighing approximately 350 pounds. The patient presented to the emergency department and subsequently underwent closed reduction and percutaneous pinning of multiple toe fracture dislocations to his right foot about [address] Rodríguez. The patient has a comminuted fracture of the right proximal phalanx, dislocation of the right second proximal interphalangeal joint, and a comminuted fracture to the right third intermediate phalanx. The percutaneous pinning performed by Dr. Rodríguez brought the fractures into near anatomic alignment, however, the patient suffered an open fracture on the right hallux and subsequently developed infection, complicating his recovery. Culture results showing Stenotrophomonas maltophilia and Staphylococcus growth. The patient was placed on the oral antibiotics several days ago and the infection continued to worsen as he did not respond to therapy. The patient presented to the wound care clinic on August 26 in the afternoon with increased 10/10, constant, throbbing and sharp pain, increasing serous drainage from the right hallux wound, localized edema that had spread from the toes into the midfoot as well as erythema that was ascending. There was concern of deep abscess and osteomyelitis based on clinical examination and laboratory studies performed outpatient. The patient also says that he was experiencing fever and chills and just generally not feeling well. The patient was sent to the [facility] Emergency Department to obtain blood cultures to rule out sepsis, x-ray to determine pin placement in the right first and second toes as a source for infection circulatory compromise. The patient was also sent for MRI to rule out deep abscess and osteomyelitis. The patient was also sent for IV antibiotics as he had failed treatment with oral antibiotics and is at high risk for amputation. Today, the patient was seen at bedside and he denies any nausea, vomiting, fever, chills, chest pain, or shortness of breath. He still has pain in his right foot, but he says that he is getting IV pain medications which has brought the pain down to about 4 or 5/10 and that feels like it is still throbbing and occasionally sharp. The patient has had no acute events overnight. The patient had his x-ray performed, but is not yet had his MRI performed due to placement of the metal pins in his right first and second toes. The patient has been receiving IV antibiotics and Infectious Disease has been consulted. PAST MEDICAL HISTORY: The patient denies. PAST SURGICAL HISTORY: Closed reduction with percutaneous pinning of right first and second toes in August 2018. MEDICATIONS: Please see the MAR. ALLERGIES: NO KNOWN DRUG ALLERGIES. SOCIAL HISTORY: The patient is a current smoker, half pack per day. The patient does not consume any alcohol. The patient denies any illicit drug use. FAMILY HISTORY: Noncontributory. REVIEW OF SYSTEMS: Full 12-point review of systems is negative except as described in the HPI above. PHYSICAL EXAMINATION: GENERAL: The patient is awake, alert, and oriented to person, place, and time. He is in no acute distress. VITAL SIGNS: Stable. HEENT: Normocephalic, atraumatic. CARDIOVASCULAR: Edema in the right lower extremity. Capillary refill time absent right hallux. Capillary refill time severely delayed to the right second and third toes. Capillary refill time normal for right 4th and 5th toes and for all toes of the left foot. No edema on the left lower extremity. Skin temperature is warm proximal to distal for bilateral lower extremities. There is slight distal cooling to the right hallux. There is dusky discoloration of the distal tuft to the right hallux. DERMATOLOGICAL: There is dry gangrene noted to the dorsal aspect of the interphalangeal joint of the right hallux. There is an open wound on the dorsal medial aspect of the right hallux interphalangeal joint with moderate serous drainage. There is erythema extending throughout the first, second toes right foot into the midfoot to the level of the mid tarsus. The toenails of the right first, second, and third toes are discolored, dystrophic, and exhibit onycholysis. All other toenails are normal length and thickness. NEUROLOGIC: The patient has absent sensation to the distal, medial, dorsal, and plantar aspect of the right hallux. The patient denies any tingling or burning sensation with percussion of the medial dorsal cutaneous nerve. There is diffuse loss of sensation along the medial dorsal cutaneous nerve from the midfoot distally. There is also diminished sensation to the medial plantar nerve from the midfoot extending to the right hallux and second toes. MUSCULOSKELETAL: Muscle strength is appropriate against resistance for all major muscles groups of the bilateral lower extremities. Range motion testing deferred for the right hallux, second toe, and third toe due to severe pain experienced by the patient. The patient has severe pain with palpation of the all 3 digits. The patient has mild pain with palpation to the right midfoot dorsally, medially, and plantarly. No gross deformities are noted. Two 0.0062 K-wires noted to be intact in the right hallux and right second toe exiting the distal tuft with pin cap in place. Pin site is clear without any drainage or signs of infection at the pin site. PSYCHIATRIC: The patient is pleasant and shows no signs of depression. The patient has anxiety associated with his right foot infection. RADIOLOGY: 1. X-ray three views right foot reviewed. The lateral view shows comminution of the proximal phalanx of the right hallux. AP view shows good alignment of the fractures in the first and second toes right foot with the K-wires, however, there is very little [id number] contact at the fracture site of the right proximal phalanx on the AP view and no signs of any bony callus forming since fixation. The right 2nd toe k- wire is extending into the metatarsal phalangeal joint. Soft tissue swelling noted throughout the forefoot and toes. No soft tissue emphysema noted. Bone density is normal throughout. There is comminuted fracture of the third intermediate phalanx noted. 2. MRI right foot is pending. LABS: ESR, CRP pending. No new labs at the moment. Blood cultures pending. Wound culture positive as described in the HPI above. ASSESSMENT: 1. Crushing injury of the right great toe. 2. Crushing injury of the right second toe. 3. Crushing injury of the right third toe. 4. Comminuted fracture of right first proximal phalanx. 5. Dislocated right second to proximal interphalangeal joint status post closed reduction with percutaneous pinning. 6. Comminuted fracture right third intermediate phalanx. 7. Nicotine dependence. 8. Open wound right great toe with damage to nail. 9. Right lower extremity cellulitis. PLAN: The patient was seen and evaluated. The case was discussed with Dr. Gonzáles. Dr. Hollingsworth was consulted for the patient's infection. X-ray results and images were reviewed by myself. The right hallux fracture will need revision with more [id number] contact at the fracture site for primary bone healing. Given the time that has passed since the original incident, and the severity of his infection, amputation or partial amputation is highly likely. The right third intermediate phalanx is extremely high risk for avascular necrosis due the degree of comminution and will likely need to undergo phalangectomy. The right second proximal interphalangeal joint dislocation appears to be satisfactorily reduced and stable. The cellulitis is improving on IV antibiotics. MRI still pending. The patient will be placed n.p.o. pending results of the stat MRI. If abscess is present, the patient will be taken to surgery today for I and D. Otherwise, the patient will be stabilized on IV antibiotics and will be scheduled for surgical management. Today, the K-wires in the right first and second toes were removed at bedside as the metal is a nidus for infection and could further complicate the patient's condition. The pin sites were cleansed with Betadine and the wires were pulled at bedside. The patient tolerated the procedure well and no anesthesia needed. There was no bleeding noted. Wound care: Betadine wet-to-dry dressing is placed on the right foot wound and over the pin sites. I continue to follow the patient closely and will have further recommendations upon review of the MRI. Thank you very much for the consultation and for allowing me to participate in this patient's care. ABBY Castro/TAHIRA /[id number] MAGDALENA
[2018-08-28] MEDS: CEFEPIME 1GM/NS 0.9% 50 ML 50 ML IV SCH ×2 (03:53→16:29)
[2018-08-28] MEDS: VANCOMYCIN 1GM/NS 250 ML 250 ML IV SCH (05:24)
--- NOTE | 2018-08-28 07:00 | NUR ---
BEDSIDE SHIFT REPORT RECEIVED FROM CASSANDRA CONSULTANT RN. PT DENIES NEEDS AT THIS TIME.
[2018-08-28] MEDS: HYDROMORPHONE 2MG/ML 2 MG/ML ML IV PRN (15:16)
--- NOTE | 2018-08-28 15:49 | Progress Note ---
DATE: 08/28/2018 CHIEF COMPLAINT: Right foot crush injury. SUBJECTIVE: The patient was seen today at bedside. The patient denies any nausea, vomiting, fever, chills, chest pain, or shortness of breath. No acute events overnight. The patient states that his pain is well controlled, on current pain medications and he has about 3/10 throbbing pain with occasional sharp pain. OBJECTIVE: GENERAL: The patient is awake, alert, and oriented to person, place, and time. The patient is in no acute distress. VITAL SIGNS: Temperature 95.6 degrees Fahrenheit, pulse 87, blood pressure 119/60, respiratory rate 18, and SpO2 of 98%. LOWER EXTREMITY EXAM: Dressing in place to the right foot, it is clean, dry, and intact. Dressing was removed today. Drainage has decreased from the wound and is minimal, serous. The edema is improving to the right forefoot. The patient still has absent sensation to the right first and second toes and diminished sensation to the right forefoot and right third toe. The patient still has pain on palpation of the right forefoot, right first toe, right second toe, and right third toe, although pain has improved on palpation since examination yesterday. There is no purulence, malodor. Capillary refill time absent to the right first toe, right second toe, delayed to right third toe, normal for right fourth toe and right fifth toe. IMAGING: MRI of the right foot. Images were reviewed and the patient has bone marrow edema in the proximal phalanx of the right first toe. The patient also has bone marrow edema in the right third proximal and intermediate phalanges. There is no abscess noted to the right foot. There is diffuse edema to right forefoot. LABORATORY DATA: Sodium 137, chloride 109, BUN 13, potassium 4.0, CO2 of 26, creatinine 0.8, and glucose 102. WBC 7.87, hemoglobin 14.3, hematocrit 42.9, and platelets 241. Total bilirubin 0.3, AST 19, ALT 56, and ALP 125. ASSESSMENT: 1. Crushing injury of right great toe. 2. Crushing injury of right second toe. 3. Crushing injury of right third toe. 4. Comminuted fracture of right first proximal phalanx. 5. Dislocated right second proximal interphalangeal joint, status post closed reduction with percutaneous pinning. 6. Comminuted fracture of right third intermediate phalanx. 7. Nicotine dependence. 8. Open wound of right great toe with damage to nail. 9. Right lower extremity cellulitis. PLAN: 1. The patient was seen and evaluated. The case was discussed with the patient and his in detail. 2. Continue IV antibiotics per Dr. Hollingsworth for the patient's right lower extremity cellulitis. 3. MRI of right foot reviewed and no abscess was noted. No signs of osteomyelitis, although the patient does have a high level of bone marrow edema at and near the fracture sites of the first and third toes. 4. Wound care performed at bedside, Betadine wet-to-dry dressing for right foot. 5. The patient will need surgery and surgical options were discussed with the patient. Due to the ischemic changes and neurological damage to the right foot, the patient will likely need amputation of the right first and second toes and phalangectomy of the right third intermediate phalanx with possible partial resection of the head of the right third proximal phalanx. The patient and his wished to think about their options and will make their decision and let me known if they have any further questions. ABBY Castro/TAHIRA /[id number] MTDD
[2018-08-28] MEDS: VANCOMYCIN HCL 1.25 GM in SODIUM CHLORIDE 0.9% 250ML 250 ML IV SCH (16:29)
[2018-08-28] MEDS: ENOXAPARIN SOD INJ 40 MG/0.4 ML SYR SC SCH (17:24)
--- NOTE | 2018-08-28 20:09 | Progress Note ---
DATE: 08/28/2018 Medicine Progress Note SUBJECTIVE: The patient was told that he is going to have amputation of his right toes, but currently unsure of the timing. He has no overnight events. Pain is well controlled. PHYSICAL EXAMINATION: VITAL SIGNS: Temperature 97.2, pulse 84, respiratory rate 20, blood pressure 130/78, and pulse ox 98% on room air. GENERAL: Not in acute distress, alert and oriented x3. Cooperative on examination. HEENT: Head is normocephalic, atraumatic. Eyes, pupils are equal, round, and reactive to light bilaterally. Extraocular movements are intact bilaterally. Throat, no evidence of any erythema or exudates in the posterior pharynx. Has poor dentition NECK: Supple. Good range of motion. PULMONARY: Clear to auscultation bilaterally. No wheezing, rales, or rhonchi. No crackles appreciated. CARDIOVASCULAR: Positive S1, S2. No murmurs, rubs, or gallops appreciated. ABDOMEN: Soft, nondistended, and nontender to palpation. Bowel sounds present. MUSCULOSKELETAL: Strength is 5/5 throughout. No evidence of any muscle deficits on examination. No confusion. NEUROLOGIC: Cranial nerves II through XII grossly intact. No evidence of any neurological deficits on exam. SKIN: Intact. Warm to touch. Good cap refill. PSYCHIATRIC: Normal affect and mood. EXTREMITIES: No edema. Good range of motion throughout. LABORATORY DATA: None today, we will get labs. MICROBIOLOGY: Blood cultures, no growth. Urine cultures, no growth. IMAGING STUDY: MRI of the foot shows bone marrow edema within the phalanges of the first and second toes and middle phalanx of third and the pinning of fractures, percutaneous pinning and removal, evaluation for osteomyelitis by MRI is limited. No abscess. Arterial Doppler shows pretty good and normal flow according to the report. IMPRESSION: 1. Right foot crush injury, status post pinning of the right big toe and right second, concerning for underlying infection of the right foot. 2. Recent crush injury. PLAN: Discussed case with Podiatry. After reviewing MRI findings, the final solution is amputation of the toes, and this was discussed with the patient by Podiatry. The patient seems to have agreed, but now we are going to wait for time for amputation. Continue with IV antibiotics per ID recommendations. Pain is well controlled on IV pain medication. Continue with Lovenox for DVT prophylaxis. MD CARLOS Rogers/MODL /[id number]
[2018-08-28] MEDS: HYDROCODONE/APAP 5MG-325MG TAB PO PRN (22:33)
[2018-08-29] VITALS (7 sets, daily range): BP systolic 125–157; BP diastolic 60–85
[2018-08-29] MEDS: SODIUM CHLORIDE 0.9% 1000ML 1,000 ML IV SCH ×3 (03:34→20:19)
[2018-08-29] MEDS: CEFEPIME 1GM/NS 0.9% 50 ML 50 ML IV SCH ×2 (04:51→16:04)
[2018-08-29 05:11] LABS: BASOPHILS % 0.4 % (0.0-1.0); EOSINOPHILS # (AUTO) 0.2 (0.0-0.4); EOSINOPHILS % 1.9 % (0.0-6.0); HEMATOCRIT 44.7 % (38.2-49.6); HEMOGLOBIN 15.1 g/dL (14.0-18.0); LYMPHOCYTES # (AUTO) 2.3 (1.0-3.2); LYMPHOCYTES % 29.3 % (18.0-39.1); MEAN CORPUSCULAR HEMOGLOBIN 29.2 pg (28-32); MEAN CORPUSCULAR HGB CONC 33.8 g/dL (31-35); MEAN CORPUSCULAR VOLUME 86.3 fL (81-99); MONOCYTES # (AUTO) 0.6 (0.2-0.8); MONOCYTES % 7.8 % (4.4-11.3); NEUTROPHILS # (AUTO) 4.8 (2.1-6.9); NEUTROPHILS % 60.3 % (38.7-80.0); PLATELET COUNT 254 x10e3/uL (140-360); RED BLOOD COUNT 5.18 x10e6/uL (4.3-5.7); RED CELL DISTRIBUTION WIDTH 12.2 % (11.7-14.4)
[2018-08-29 05:31] LABS: ANION GAP 8.9 mmol/L (8-16); BLOOD UREA NITROGEN 14 mg/dL (7-26); BUN/CREATININE RATIO 19 (6-25); CALCIUM 10.1 mg/dL (8.4-10.2); CARBON DIOXIDE 27 mmol/L (22-29); CHLORIDE 104 mmol/L (98-107); CREATININE, SERUM 0.73 mg/dL (0.72-1.25); EST GLOMERULAR FILTRATION RATE > 60 ML/MIN (60-); GLUCOSE 87 mg/dL (74-118); POTASSIUM 3.9 mmol/L (3.5-5.1); SODIUM 136 mmol/L (136-145)
[2018-08-29] MEDS: VANCOMYCIN HCL 1.25 GM in SODIUM CHLORIDE 0.9% 250ML 250 ML IV SCH ×2 (05:32→20:20)
[2018-08-29] MEDS: HYDROMORPHONE 2MG/ML 2 MG/ML ML IV PRN ×3 (06:18→22:19)
--- NOTE | 2018-08-29 06:32 | NUR ---
PT C/O BURNING TO RIGHT AC IV. D/C IV. START NEW IV TO RIGHT HAND 20G.
[2018-08-29] MEDS ORDERED: NITROGLYCERIN 2% OINT 1 GM PKT TOP ONE (12:00)
--- NOTE | 2018-08-29 15:59 | Progress Note ---
DATE: 08/29/2018 Medicine Progress Note SUBJECTIVE: The patient is doing well today with no complaints. MRI of the foot noted. He is supposed to have an amputation of his toes, but not scheduled yet. OBJECTIVE: VITAL SIGNS: Temperature 96.8, pulse 90, respiratory rate is 19, blood pressure 157/84, and pulse ox 99% on room air. GENERAL: Not in acute distress. Alert and oriented x3. Cooperative on examination. HEENT: Head is normocephalic and atraumatic. Eyes, pupils are equal, round, and reactive to light bilaterally. Extraocular movements are intact bilaterally. Throat, no evidence of any erythema or exudates in the posterior pharynx. Has poor dentition. NECK: Supple. Good range of motion. PULMONARY: Clear to auscultation bilaterally. No wheezes, no rales, no rhonchi, no crackles appreciated. CARDIOVASCULAR: Positive S1 and S2. No murmurs, rubs, or gallops appreciated. ABDOMEN: Soft, nondistended, and nontender to palpation. Bowel sounds present. MUSCULOSKELETAL: Strength is 5/5 throughout. No evidence of any muscle deficits on examination. No weakness appreciated. NEUROLOGICAL: Cranial nerves II through XII grossly intact. No evidence of any neurological deficits on exam. SKIN: Intact. Warm to touch. Good cap refill. PSYCHIATRIC: Normal affect and mood. EXTREMITIES: No edema. Good range of motion throughout. LABORATORY FINDINGS: Show CBC normal. Chemistry normal. MICROBIOLOGY: Noted. Blood culture negative and urine culture negative. IMPRESSION: 1. Right foot crush injury, status post pinning of the right big toe and right 2nd toe, concerning for underlying infection of the right foot. 2. Recent crush injury. PLAN: The patient is in the process of getting amputation of the toes. I am not sure when that will occur. Podiatry is following. IV antibiotics. Pain control. ID following. Lovenox for DVT prophylaxis. MD CARLOS Rogers/CASPERL /[id number]
[2018-08-29] MEDS ORDERED: NITROGLYCERIN 2% OINT 1 GM PKT TOP SCH ×2 (16:00→19:15)
--- NOTE | 2018-08-29 19:40 | NUR ---
DR HUGHES ORDERED COMPLETE CONSENT FORM FOR I&D TO RIGHT FOOT POSSIBLE AMPUTATION ON SATURDAY. NOTIFIED [facility]
[2018-08-29] MEDS: ENOXAPARIN SOD INJ 40 MG/0.4 ML SYR SC SCH (20:19)
--- NOTE | 2018-08-29 21:30 | NUR ---
DRESSING CHANGE TO RIGHT FOOT. PATIENT TOLERATED WELL. CONTINUE TO MONITOR CLOSELY
--- NOTE | 2018-08-29 22:20 | Progress Note ---
DATE: 08/29/2018 CHIEF COMPLAINT: Right foot crush injury. SUBJECTIVE: The patient was seen today at bedside. The patient denies any nausea, vomiting, fever, chills, chest pain, or shortness of breath. The patient relates having moderate to severe pain that is worsened today to the right foot with occasional sharp pain in the right first and second toes. The patient currently states that his oral and IV pain medications are doing well, controlling his pain. No acute events overnight. The patient's family including his were in the room and are asking about surgical intervention and treatment options. OBJECTIVE: GENERAL: The patient is awake, alert, and oriented to person, place, and time. The patient is in no acute distress. VITAL SIGNS: Temperature 97.5 degrees Fahrenheit, blood pressure 134/72, pulse 75, respirations 19, and SpO2 of 97% on room air. EXTREMITIES: The dressing in place to the right foot is clean, dry, and intact. Dressing was removed. Right foot cellulitis significantly improved with noticeable reduction in warmth and edema. The patient still has absent sensation to the right first and second toes and is beginning to have diminished sensation to the right third toe. Capillary refill time still absent to the right first and second toes, delayed to the right third toe, and normal to the right fourth and fifth toes. The gangrene to the right first and second toes has remained stable, appears to have demarcated. Wound is now draining on the right hallux. Posterior tibial and dorsalis pedis pulses are palpable 2/4. The patient has ability to move all toes, although to a limited extent in the first, second, and third toes. The patient has pain with range of motion. ASSESSMENT: 1. Crushing injury of the right great toe. 2. Crushing injury of the right second toe. 3. Crushing injury of the right third toe. 4. Comminuted fracture of right first proximal phalanx. 5. Dislocated right second proximal interphalangeal joint, status post closed reduction with percutaneous pinning. 6. Comminuted fracture of right third intermediate phalanx. 7. Nicotine dependence, significantly improved. The patient has not had any cigarettes in about 1 week. 8. Open wound of right great toe with damaged nail. 9. Right lower extremity cellulitis. PLAN: 1. The patient was seen and evaluated. The case was discussed by phone with Dr. Hollingsworth. 2. Wound care performed at bedside today. Nitro paste was applied to the right first and second toes to evaluate for any vasodilation or increased perfusion. After approximately 30-45 minutes, no increased perfusion was noted and no increase in sensation was noted. The crushing injury to the right foot has destroyed the neurovasculature to the right hallux and right second toe and right third toe. The patient will undergo surgical intervention on Saturday for evaluation of the extent of the injury. The patient will be consented for I and D with possible amputation. 3. Continue IV antibiotics for cellulitis. 4. The patient is to continue limiting activity for now. ABBY Castro/TAHIRA /[id number] MAGDALENA
[2018-08-30] VITALS (8 sets, daily range): BP systolic 125–136; BP diastolic 67–75
[2018-08-30] MEDS: CEFEPIME 1GM/NS 0.9% 50 ML 50 ML IV SCH ×2 (04:51→16:52)
[2018-08-30] MEDS: VANCOMYCIN HCL 1.25 GM in SODIUM CHLORIDE 0.9% 250ML 250 ML IV SCH ×3 (05:50→18:21)
[2018-08-30] MEDS: SODIUM CHLORIDE 0.9% 1000ML 1,000 ML IV SCH (05:50)
--- NOTE | 2018-08-30 14:43 | Progress Note ---
DATE: 08/30/2018 Medicine Progress Note SUBJECTIVE: The patient is doing well today with no other complaints. He is scheduled for surgery on Saturday to have amputation of his toes. OBJECTIVE: VITAL SIGNS: Temperature 98.1, pulse 86, respiratory rate is 18, blood pressure 125/70, pulse ox 98% on room air. GENERAL: Not in acute distress. Alert and oriented x3. Cooperative on examination. HEENT: Head is normocephalic and atraumatic. Eyes; pupils are equal, round, and reactive to light bilaterally. Extraocular movements are intact bilaterally. Throat; no evidence of erythema or exudates in the posterior pharynx. Has poor dentition. NECK: Supple. Good range of motion. PULMONARY: Clear to auscultation bilaterally. No wheezing, no rales, no rhonchi, no crackles appreciated. CARDIOVASCULAR: Positive S1 and S2. No murmurs, rubs, or gallops appreciated. ABDOMEN: Soft, nondistended, and nontender to palpation. Bowel sounds present. MUSCULOSKELETAL: Strength is 5/5 throughout. No evidence of any muscle deficits on examination. No weakness appreciated. NEUROLOGIC: Cranial nerves II through XII were grossly intact. No evidence of any neurological deficits on exam. SKIN: Intact. Warm to touch. Good cap refill. PSYCHIATRIC: Normal affect and mood. EXTREMITIES: No edema. Good range of motion throughout. LAB FINDINGS: Show white count 7.9, hemoglobin 15, hematocrit 44, platelets of 254. Chemistry; sodium 133, potassium 3.9, chloride 104, bicarb 27, anion gap of 8.9. Chemistries are normal. Microbiology, no growth. IMPRESSION: 1. Right foot crush injury, status post pinning of the right big toe and 2nd toe concerning for underlying infection of the right toe of the right foot. 2. Recent crush injury. PLAN: At this time, he is scheduled to have amputation of his toes on 09/01/2018 by Podiatry. Continue with IV antibiotics. ID and Podiatry are following. Lovenox for DVT prophylaxis. Stop IV fluids. Monitor closely. MD CARLOS Rogers/TAHIRA /[id number]
[2018-08-30] MEDS: ENOXAPARIN SOD INJ 40 MG/0.4 ML SYR SC SCH (16:52)
--- NOTE | 2018-08-30 16:55 | NUR ---
page Dr. Pablito cox for call back
[2018-08-30] MEDS: HYDROCODONE/APAP 5MG-325MG TAB PO PRN ×2 (17:35→20:55)
--- NOTE | 2018-08-30 18:45 | NUR ---
Received bedside report from day shift RN. Patient is in bed call light within reach, set low, side rails up x2 and is not in distress. Day RN stated the dressing is only to be changed by the MD for the right foot.
--- NOTE | 2018-08-30 21:00 | NUR ---
Dr. Singletary visited the patient and updated the RN that the patient may or may not have the surgical procedure on 09/01/2018 due to the spreading of the gangrene on the toes of the right foot. MD will inform RN if the procedure is set to take place on 09/01 or later in the week.
--- NOTE | 2018-08-30 21:18 | Progress Note ---
DATE: 08/30/2018 TIME: 8:21 p.m. CHIEF COMPLAINT: Right foot crush injury. SUBJECTIVE: The patient was seen at bedside today. The patient denies any nausea, vomiting, fever, chills, chest pain, or shortness of breath. No acute events overnight. The patient states that his pain is well controlled and that he has been using oral Emblem today and does not had to use any IV Dilaudid. OBJECTIVE: GENERAL: The patient is awake, alert, and oriented to person, place, and time. The patient is in no acute distress. VITAL SIGNS: Temperature 97.1, pulse 79, blood pressure 126/75, respirations 16, and SpO2 of 98% on room air. EXTREMITIES: Dressing in place to the right foot is clean, dry, and intact. Dressing was removed. The dry gangrene to the right hallux and right second toe is continuing to demarcate. The patient continues to have absent sensation to the first and second digits and diminished sensation to the right third toe. No gangrene noted to the right third toe at this time. The patient did not have any positive response to nitro paste. No increased sensation. No vasodilation. There is no malodor. There is no purulence. There is scant serous drainage. Erythema and edema localized to the right forefoot and toes has significantly improved. ASSESSMENT: 1. Crushing injury of the right great toe. 2. Crushing injury of the right second toe. 3. Crushing injury of the right third toe. 4. Comminuted fracture of right first proximal phalanx. 5. Dislocated right second proximal interphalangeal joint, status post closed reduction with percutaneous pinning. 6. Comminuted fracture of right third intermediate phalanx. 7. Nicotine dependence. 8. Open wound of right great toe with damaged nail. 9. Right lower extremity cellulitis. PLAN: 1. The patient was seen and evaluated. 2. Wound care performed at bedside. Right foot was painted with Betadine and dressed with dry sterile dressing. 3. Continue with IV antibiotics for cellulitis for right lower extremity cellulitis. 4. The patient is currently scheduled for surgery on Saturday. ABBY Castro/TAHIRA /[id number] MTDD
[2018-08-31] VITALS (8 sets, daily range): BP systolic 120–133; BP diastolic 62–76
[2018-08-31] MEDS: CEFEPIME 1GM/NS 0.9% 50 ML 50 ML IV SCH ×2 (04:08→18:05)
[2018-08-31] MEDS: VANCOMYCIN HCL 1.25 GM in SODIUM CHLORIDE 0.9% 250ML 250 ML IV SCH ×2 (05:04→19:37)
[2018-08-31] MEDS: HYDROCODONE/APAP 5MG-325MG TAB PO PRN (10:45)
--- NOTE | 2018-08-31 15:06 | Progress Note ---
DATE: 08/31/2018 Medicine Progress Note SUBJECTIVE: The patient is scheduled for surgery tomorrow by Podiatry. No overnight events. PHYSICAL EXAMINATION: VITAL SIGNS: Temperature 97.4, pulse 82, respiratory rate 17, blood pressure 133/73, and pulse ox 97% on room air. GENERAL: Not in acute distress. Alert and oriented x3. Cooperative on examination. HEENT: Head is normocephalic and atraumatic. Eyes; pupils are equal, round, and reactive to light bilaterally. Extraocular movements are intact bilaterally. Throat, no evidence of erythema or exudates in the posterior pharynx. Has poor dentition. NECK: Supple. Good range of motion. PULMONARY: Clear to auscultation bilaterally. No wheezing, no rales, no rhonchi, no crackles appreciated. CARDIOVASCULAR: Positive S1, S2. No murmurs, rubs, or gallops appreciated. ABDOMEN: Soft, nondistended, and nontender to palpation. Bowel sounds present. MUSCULOSKELETAL: Strength is 5/5 throughout. No evidence of any muscle deficits on examination. No weakness appreciated. NEUROLOGICAL: Cranial nerves 2 through 12 grossly intact. No evidence of any neurological deficits on exam. SKIN: Intact. Warm to touch. Good cap refill. PSYCHIATRIC: Normal affect and mood. EXTREMITIES: No edema. Good range of motion throughout. LABORATORY DATA: CBC normal. Chemistry is normal. MICROBIOLOGY: No growth. IMPRESSION: 1. Right foot crush injury status post pinning of the right 5th toe and 2nd toe with also underlying concern for infection of the right toe and right foot. 2. Recent crush injury. PLAN: He is scheduled for surgery tomorrow by Podiatry on 09/01/2018. Continue with IV antibiotics. Podiatry and ID managing. He is saying that his pain is well controlled at this time, we will continue same plan of care with no change. MD CARLOS Rogers/TAHIRA /[id number]
[2018-08-31] MEDS: ENOXAPARIN SOD INJ 40 MG/0.4 ML SYR SC SCH (17:00)
--- NOTE | 2018-08-31 18:43 | Progress Note ---
DATE: 08/31/2018 SUBJECTIVE: Today with the patient and his . We had a lengthy discussion. I also discussed the case with Dr. Singletary. The patient who is currently lying in bed comfortably, has no complaints. OBJECTIVE: GENERAL: He is currently alert, oriented, does not seem to be in acute distress. VITAL SIGNS: Stable, afebrile. HEENT: Normocephalic, not icteric. NECK: Supple. No JVD. No lymphadenopathy. No thyromegaly. CHEST: Clear bilateral. HEART: S1, S2. No S3, S4, or murmur. ABDOMEN: Soft. Bowel sounds present. EXTREMITIES: The big toe gangrene is progressing. The 2nd toe has also some necrotic tissue. ASSESSMENT: Osteomyelitis of the foot with severe peripheral vascular disease, Buerger disease. Discussed with Dr. Singletary and discussed with family, I think the best would be to obtain a surgical debridement and then depending on the intraoperative finding, we will continue with IV antibiotic. I think limited exploration with excisional debridement of may be the first and 2nd toe, but the muscle look healthy and it is only skin, maybe we can just do skin debridement and to see if we can save the foot, but if does not then to proceed with amputation and they will continue with intravenous antibiotic 2-6 weeks depending on the finding with intraoperative with weekly CBC, weekly chem panel. Would also recommend to obtain intraoperative bone cultures, although the yield of it could be low because the patient has been on IV antibiotic. Laboratory data reviewed. Chart reviewed. Further recommendations to follow. MD PATTI Torres/MODOmar /[id number]
--- NOTE | 2018-08-31 19:00 | NUR ---
Received bedside report from day shift RN. Patient is laying on the bed with no distress, bed set low, call light within reach, and side rails up x2. The patient reported his right foot pain at 4/10 and is not requesting medication for the pain at this moment. RN educated to call if pain medication is needed. Verbalized understanding.
--- NOTE | 2018-08-31 19:43 | Progress Note ---
DATE: 08/31/2018 TIME: 6 p.m. CHIEF COMPLAINT: Right foot crush injury. SUBJECTIVE: The patient was seen today at bedside. The patient denies any nausea, vomiting, fever, chills, chest pain, or shortness of breath. No acute events overnight. The patient states he is still taking the oral pain medication, although pain has improved slightly in the last few days and he claims he does not need to use as much of it. The patient has questions about surgery, which were answered. OBJECTIVE: GENERAL: The patient is awake, alert, and oriented to person, place, and time. The patient is in no acute distress. VITAL SIGNS: Temperature 97.6, pulse 87, blood pressure 132/70, respirations 17, and SpO2 of 100% on room air. EXTREMITIES: Lower extremity exam, dressing in place to the right foot is clean, dry, and intact. The patient continues to have dry gangrene demarcating to the right hallux, second toe, and third toe. No evidence of dry gangrene in the forefoot. The patient has no sensation to right first and second toes. Decreased sensation to right third toe. Normal sensation to right fourth and fifth toes. Sensation has not changed. There is no malodor and no purulence. There is scant serosanguineous drainage. Erythema and edema localized to the right forefoot and toes is continuing to improve. ASSESSMENT: 1. Crushing injury, right foot. 2. Open fracture, right first proximal phalanx. 3. Dislocation, right second proximal interphalangeal joint. 4. Comminuted fracture, right third intermediate phalanx. 5. Right lower extremity cellulitis. 6. Acute osteomyelitis, right foot. 7. Nicotine dependence. PLAN: 1. The patient was seen and evaluated. 2. Continue wound care daily with Betadine, wet-to-dry. 3. Case was discussed with Dr. Medina in detail. Coordination of care discussed. 4. Continue with IV antibiotics for cellulitis and osteomyelitis for the right lower extremity. 5. Spoke to the patient's nurse who will get the patient's consent signed for surgery. The patient will be placed n.p.o. at midnight and anticoagulants will be held for day of surgery and restarted day after surgery including Lovenox 40 mg. 6. The patient is scheduled for surgery on 09/01/2018, for I and D, right foot with possible amputation and bone biopsy. ABBY Castro/TAHIRA /[id number] MAGDALENA
[2018-09-01] VITALS (7 sets, daily range): BP systolic 123–156; BP diastolic 70–77
[2018-09-01] MEDS: HYDROMORPHONE 2MG/ML 2 MG/ML ML IV PRN (02:33)
--- NOTE | 2018-09-01 03:00 | Diagnostic Imaging Report ---
EXAMINATION: CHEST XRAY LINE PLACEMENT COMPARISON: Chest x-ray 08/06/2018 INDICATION: PICC line placement ^Placement of PICC ^[id number] ^0210 ^Y DISCUSSION: Frontal view of the chest obtained at 0246 hours. HEART AND MEDIASTINUM: The cardiomediastinal silhouette is unremarkable. LINES: Right PICC line terminates in the SVC. LUNGS: The lungs are well inflated and clear. No pneumonia or pulmonary edema. PLEURA: No pleural effusion or pneumothorax. BONES AND SOFT TISSUES: No focal osseous lesion. The soft tissues are normal. IMPRESSION: Right PICC line terminates in the SVC. No pneumothorax. No acute cardiopulmonary process. Signed by: Dr. Frederick Preciado MD on 09/01/2018 2:56 AM
[2018-09-01] MEDS ORDERED: SODIUM CHLORIDE 0.9% 250ML 250 ML ONE ×2 (04:39→04:40)
[2018-09-01] MEDS: CEFEPIME 1GM/NS 0.9% 50 ML 50 ML IV SCH ×2 (04:49→16:01)
[2018-09-01] MEDS: VANCOMYCIN HCL 1.25 GM in SODIUM CHLORIDE 0.9% 250ML 250 ML IV SCH ×3 (05:30→18:00)
[2018-09-01 05:59] LABS: BASOPHILS # (AUTO) 0.1 (0.0-0.1); BASOPHILS % 0.6 % (0.0-1.0); EOSINOPHILS # (AUTO) 0.2 (0.0-0.4); EOSINOPHILS % 2.2 % (0.0-6.0); HEMOGLOBIN 15.8 g/dL (14.0-18.0); LYMPHOCYTES # (AUTO) 2.1 (1.0-3.2); LYMPHOCYTES % 23.4 % (18.0-39.1); MEAN CORPUSCULAR HEMOGLOBIN 29.2 pg (28-32); MEAN CORPUSCULAR HGB CONC 34.3 g/dL (31-35); MEAN CORPUSCULAR VOLUME 84.9 fL (81-99); MONOCYTES # (AUTO) 0.8 (0.2-0.8); MONOCYTES % 8.5 % (4.4-11.3); NEUTROPHILS # (AUTO) 5.8 (2.1-6.9); NEUTROPHILS % 64.9 % (38.7-80.0); PLATELET COUNT 255 x10e3/uL (140-360); RED BLOOD COUNT 5.42 x10e6/uL (4.3-5.7); RED CELL DISTRIBUTION WIDTH 12.2 % (11.7-14.4)
[2018-09-01 06:25] LABS: ANION GAP 12.3 mmol/L (8-16); BLOOD UREA NITROGEN 10 mg/dL (7-26); BUN/CREATININE RATIO 11 (6-25); CALCIUM 10.6 mg/dL (8.4-10.2); CARBON DIOXIDE 26 mmol/L (22-29); CHLORIDE 105 mmol/L (98-107); CREATININE, SERUM 0.87 mg/dL (0.72-1.25); EST GLOMERULAR FILTRATION RATE > 60 ML/MIN (60-); GLUCOSE 95 mg/dL (74-118); POTASSIUM 4.3 mmol/L (3.5-5.1); SODIUM 139 mmol/L (136-145)
[2018-09-01 06:31] LABS: INR 0.9; PROTHROMBIN TIME 12.6 seconds (11.9-14.5)
--- NOTE | 2018-09-01 07:00 | NUR ---
BEDSIDE SHIFT RECEIVED FROM THE SEED ANALYSIS LABORATORY ASSISTANT RN. PT DENIES NEEDS AT THIS TIME. FAMILY AT BEDSIDE.
--- NOTE | 2018-09-01 08:00 | NUR ---
PICC LINE IN PLACE. RIGHT FORE ARM IV REMOVED. TIP INTACT. NO BLEEDING NOTED. DRESSING APPLIED. PT DENIED FURTHER NEEDS.
[2018-09-01] MEDS: SODIUM CHLORIDE 0.9% 1000ML 1,000 ML IV SCH (15:05)
--- NOTE | 2018-09-01 15:07 | Progress Note ---
DATE: 09/01/2018 Medicine Progress Note SUBJECTIVE: The patient is doing well today. Scheduled for a TMA later today by Podiatry. No overnight events. OBJECTIVE: VITAL SIGNS: Temperature is 96.9, pulse 73, respiratory rate is 18, blood pressure 132/74, pulse ox 97% on room air. GENERAL: Not in acute distress, alert oriented x3. Cooperative on examination. HEENT: Head is normocephalic and atraumatic. Eyes; pupils are equal, round, and reactive to light bilaterally. Extraocular movements are intact bilaterally. Throat; no evidence of erythema or exudates in the posterior pharynx. Has poor dentition. NECK: Supple. Good range of motion. PULMONARY: Clear to auscultation bilaterally. No wheezing, no rales, no rhonchi, no crackles appreciated. CARDIOVASCULAR: Positive S1, S2. No murmurs, rubs, or gallops appreciated. ABDOMEN: Soft, nondistended, and nontender to palpation. Bowel sounds present. MUSCULOSKELETAL: Strength is 5/5 throughout. No evidence of any muscle deficits on examination. No weakness appreciated. NEUROLOGIC: Cranial nerves II through XII grossly intact. No evidence of any neurological deficits on exam. SKIN: Intact. Warm to touch. Good cap refill. PSYCHIATRIC: Normal affect and mood. EXTREMITIES: No edema. Good range of motion throughout. LAB FINDINGS: Show white count 8.8, hemoglobin 15, hematocrit 46, platelets of 255. Coagulation; PT 12, INR 0.98, PTT 27. Chemistries; sodium 139, potassium 4.3, chloride 105, bicarb 26, the anion gap of 12, BUN is 10, creatinine is 0.87, glucose 95, calcium is 10.6. Microbiology; no growth. IMPRESSION: 1. Right foot crush injury, status post pinning of the right 1st toe and 2nd toe with all also underlying concern for infection of the right toe and right foot. 2. Recent crush injury. PLAN: He is scheduled for surgery today by Podiatry. I believe, according to what I understand, he will have his toes amputated, but it will also . We will continue with IV antibiotics. Pain control. N.p.o. for now. Start diet after surgery. Spoke with family, agreed with plan of care. MD CARLOS Rogers/TAHIRA /[id number]
--- NOTE | 2018-09-01 16:30 | NUR ---
PER THE OR NURSE, DR HUGHES CANCELLED THE PROCEDURE FOR THE DAY. OKAY TO CHANGE NPO TO REGULAR DIET.
--- NOTE | 2018-09-01 18:00 | NUR ---
DRESSING CHANGE COMPLETED. PT TOLERATED WELL. PT DENIES NEEDS AT THIS TIME
--- NOTE | 2018-09-01 19:00 | NUR ---
BEDSIDE SHIFT REPORT GIVEN TO THE AIRCRAFT BODY REPAIRER RN. PT DENIED FURTHER NEEDS.
[2018-09-01] MEDS: HYDROCODONE/APAP 5MG-325MG TAB PO PRN (19:20)
--- NOTE | 2018-09-01 21:13 | NUR ---
CONSULT TO DR ROMO CALLED AT THIS TIME.
--- NOTE | 2018-09-01 22:03 | NUR ---
DR HUGHES IN UNIT ROUNDED ON PT.DR HUGEHS STATED THAT HES NOT GOING TO DO SURGERY AT THIS TIME,STATED THAT NPO ORDER WILL BE DC'D. Addendum: 09/02/18 at 0415 by Cuca Patel RN NPO AFTER MIDNIGHT
[2018-09-02] VITALS (9 sets, daily range): BP systolic 119–150; BP diastolic 67–77
--- NOTE | 2018-09-02 01:44 | Progress Note ---
DATE: 09/01/2018 TIME: 10 p.m. CHIEF COMPLAINT: Right foot crush injury. SUBJECTIVE: The patient was seen today at bedside. The patient denies any nausea, vomiting, fever, chills, chest pain, or shortness of breath. No acute events overnight. The patient states that he still has moderate pain to his right foot that is well controlled on current pain medication. OBJECTIVE: GENERAL: The patient is awake, alert, and oriented to person, place, and time. The patient is in no acute distress. VITAL SIGNS: Temperature 97.5, pulse 72, blood pressure 156/76, respirations 18, and SpO2 of 97% on room air. EXTREMITIES: Dressing in place to the right foot is clean, dry, and intact. Dressing was changed by nursing staff earlier today, Betadine and wet-to-dry. The patient has no ascending erythema and has no appreciable edema to the right forefoot. The patient is able to move his toes and states that he is regaining some sensation in the second digit. ASSESSMENT: 1. Crush injury, right foot. 2. Open fracture, right first proximal phalanx status post closed reduction with percutaneous pinning. 3. Dislocation, right second proximal interphalangeal joint status post closed reduction with percutaneous pinning. 4. Comminuted fracture, right third intermediate phalanx. 5. Right lower extremity cellulitis, improved. 6. Suspected acute osteomyelitis, right foot. 7. Nicotine dependence. PLAN: 1. The patient was seen and evaluated. 2. Continue daily wound care, painted wound with Betadine, wet-to-dry. 3. The patient was scheduled for I and D today with bone biopsy. Surgery was cancelled today. Surgery to be rescheduled for later date. Coordination of care was discussed with Dr. Caren Barragan. 4. Continue with IV antibiotics for cellulitis. 5. N.P.O. order discontinued and placed back on regular diet. 6. We will continue to follow the patient until transfer of care. ABBY Castro/TAHIRA /[id number] MAGDALENA
[2018-09-02] MEDS: SODIUM CHLORIDE 0.9% 1000ML 1,000 ML IV SCH (03:05)
[2018-09-02] MEDS: CEFEPIME 1GM/NS 0.9% 50 ML 50 ML IV SCH ×2 (04:00→17:15)
[2018-09-02] MEDS: HYDROMORPHONE 2MG/ML 2 MG/ML ML IV PRN (04:06)
--- NOTE | 2018-09-02 05:15 | Progress Note ---
DATE: 08/29/2018 SUBJECTIVE: Today, we had very long discussion; me, the patient, and his , as well as Dr. Singletary ,and the patient continued to have pain in the foot. He noticed that there is some progression in the toes, necrosis slightly. The patient does have history of heavy smoking. He had a crush injury about a month ago, but since then despite several wound care and antibiotics, it is getting progressively worse. An MRI was reviewed. The patient had also vascular workup done. MRI showed bone marrow edema of the first and second toes and the middle phalanx of the third toe. REVIEW OF SYSTEMS: Besides the pain, he denies any. HEENT: Negative. PULMONARY: Negative. CARDIAC: Negative. LABORATORY DATA: Reviewed. His sedimentation rate was 5. His sodium 137, potassium 4.0. PHYSICAL EXAMINATION: GENERAL: Alert, oriented, does not seem to be in acute distress. VITAL SIGNS: Stable, currently afebrile. HEENT: He is not icteric. NECK: Supple. CHEST: Clear. HEART: S1, S2. No S3, S4, or murmurs. ABDOMEN: Soft. Bowel sounds present. No tenderness. EXTREMITIES: There is no edema. There are some early gangrenous changes noted in the first and second as well as third toes. There is also swelling and edema in the distal third toe of the foot. IMPRESSION: Crush injury led to osteomyelitis, but I think the problem we are facing is vascular disease even though I can feel a good strong pulse at the dorsalis pedis, but I think because of his smoking, he probably has severe microvascular disease and that is why he is not progressing well. We had a very long discussion and I think ideally would be to go and do exploration locally, and if the muscles and the fascia are also showing ischemic changes, then we end up with amputation. If not, then maybe we can save part of the foot. In the meantime, continue the IV antibiotic. The duration of the antibiotic and the relative admission will be determined on the finding of the surgery and his clinical progress. There is really no guarantee because I do not know how bad the severity of the peripheral vascular disease. I encouraged him strongly to quit smoking. Discussed with the . Discussed with Dr. Singletary. Continue IV antibiotic. MD PATTI Torres/TAHIRA /[id number]
--- NOTE | 2018-09-02 05:36 | Progress Note ---
DATE: 08/29/2018 SUBJECTIVE: The patient was seen and examined. I had very lengthy discussion with the patient and his . I think the patient has osteomyelitis of his foot after a crush injury a month ago and I think had the problem is his smoking, probably has some small-vessel disease adding to the complexity and the poor healing and that is why probably his gangrenous changes of the toe is progressing while on antibiotic and local care. We did a doppler which showed he has good circulation, but I think he has a small vessel disease from his smoking and this was discussed at length with the patient and his . OBJECTIVE: GENERAL: Alert and oriented, does not seem to be in acute distress. VITAL SIGNS: Stable, afebrile. HEENT: Not icteric. NECK: Supple. CHEST: Clear. HEART: S1, S2. No S3, S4, or murmur. ABDOMEN: Soft. Bowel sounds present. No tenderness. EXTREMITIES: No edema. Toes, there are gangrenous changes noted in the big toe and also noted, there is early in the 2nd and also of the 3rd toe. IMPRESSION: Osteomyelitis of the left big toe, gangrenous changes of the 2nd and maybe the 3rd. I think the issue is really small-vessel disease and he will probably end up with amputation. I had discussed the case with Dr. Singletary and the patient, time spent 45 minutes. MD PATTI Torres/TAHIRA /[id number]
[2018-09-02 05:44] LABS: BASOPHILS # (AUTO) 0.1 (0.0-0.1); BASOPHILS % 0.7 % (0.0-1.0); EOSINOPHILS # (AUTO) 0.2 (0.0-0.4); EOSINOPHILS % 2.5 % (0.0-6.0); HEMATOCRIT 45.2 % (38.2-49.6); HEMOGLOBIN 14.9 g/dL (14.0-18.0); LYMPHOCYTES % 21.9 % (18.0-39.1); MEAN CORPUSCULAR HEMOGLOBIN 28.3 pg (28-32); MEAN CORPUSCULAR VOLUME 85.8 fL (81-99); MONOCYTES # (AUTO) 0.9 (0.2-0.8); MONOCYTES % 9.5 % (4.4-11.3); NEUTROPHILS # (AUTO) 5.9 (2.1-6.9); NEUTROPHILS % 65.1 % (38.7-80.0); PLATELET COUNT 260 x10e3/uL (140-360); RED BLOOD COUNT 5.27 x10e6/uL (4.3-5.7)
[2018-09-02 05:46] LABS: ANION GAP 10.1 mmol/L (8-16); BLOOD UREA NITROGEN 11 mg/dL (7-26); BUN/CREATININE RATIO 14 (6-25); CALCIUM 10.2 mg/dL (8.4-10.2); CARBON DIOXIDE 25 mmol/L (22-29); CHLORIDE 104 mmol/L (98-107); CREATININE, SERUM 0.76 mg/dL (0.72-1.25); EST GLOMERULAR FILTRATION RATE > 60 ML/MIN (60-); GLUCOSE 98 mg/dL (74-118); POTASSIUM 4.1 mmol/L (3.5-5.1); SODIUM 135 mmol/L (136-145)
[2018-09-02] MEDS: VANCOMYCIN HCL 1.25 GM in SODIUM CHLORIDE 0.9% 250ML 250 ML IV SCH ×2 (06:00→17:30)
--- NOTE | 2018-09-02 07:00 | NUR ---
BEDSIDE SHIFT REPORT RECEIVED FROM THE DUSTER TENDER RN. PT DENIES NEEDS AT THIS TIME.
--- NOTE | 2018-09-02 07:08 | NUR ---
REPORT GIVEN TO ONCOMING NURSE.WALKING ROUNDS MADE.PT RESTING IN BED WITH NO S/S OF DISTRESS.
--- NOTE | 2018-09-02 10:52 | Progress Note ---
DATE: 09/02/2018 Medicine Progress Note SUBJECTIVE: The patient is doing well today. He now currently has a new hide sorter, not sure of the evaluate the patient. Discussed with them about what is the next step in terms of his foot. PHYSICAL EXAMINATION: VITAL SIGNS: Temperature is 96.6, pulse 75, respiratory rate is 18, blood pressure 138/72, pulse ox 98% on room air. GENERAL: Not in acute distress. Alert and oriented x3. Cooperative on examination. HEENT: Head is normocephalic and atraumatic. Eyes; pupils are equal, round, and reactive to light bilaterally. Extraocular movements are intact bilaterally. Throat, no evidence of erythema or exudates in the posterior pharynx. Has poor dentition. NECK: Supple. Good range of motion throughout. PULMONARY: Clear to auscultation bilaterally. No wheezing, no rales, no rhonchi, no crackles appreciated. CARDIOVASCULAR: Positive S1, S2. No murmurs, rubs, or gallops appreciated. ABDOMEN: Soft, nondistended, and nontender to palpation. Bowel sounds present. MUSCULOSKELETAL: Strength is 5/5 throughout. No evidence of any muscle deficits on examination. No weakness appreciated. NEUROLOGICAL: Cranial nerves II through XII grossly intact. No evidence of any neurological deficits on exam. SKIN: Intact. Warm to touch. Good cap refill. PSYCHIATRIC: Normal affect and mood. EXTREMITIES: No edema. Good range of motion throughout. LAB FINDINGS: Show white count is 9, hemoglobin 14.9, hematocrit 45, platelets of 260. Chemistry is reviewed and stable. IMPRESSION: 1. Right foot crush injury, status post pinning of the right 1st toe and 2nd toe with also underlying concern for infection in the right toe. 2. Recent crush injury to the right foot. PLAN: Apparently hide sorter is scheduled to see the patient today to discuss about surgery. surgeons. Continue with IV antibiotics per ID. He has already started a diet. Spoke the plan of care with the nursing staff. Continue with pain control. MD CARLOS Rogers/MODOmar /[id number]
--- NOTE | 2018-09-02 14:26 | NUR ---
Spoke to Dr. Hollingsworth regarding DC plan. He states he is setting up IV abx thru his office. Pending insurance auth. Dr. Blankenship consulted for HBO Outpatient wound clinic currently working on getting pt approved for HBO treatment.
--- NOTE | 2018-09-02 17:28 | NUR ---
Nutrition Screen Note RD Recommendation for Physician: -Continue current diet as ordered Plan of Care: Patient has been screened and assessed for nutrition risk. At this time, the patient does not pose any nutrition risk. No further nutrition intervention is warranted at this time. Will re-evaluate if consulted by medical staff. Nutrition reason for involvement: LOS Primary Diagnose(s): Right foot crush injury, status post pinning of the right 1st toe and 2nd toe with also underlying concern for infection in the right toe. PMH: none Ht: 66in Wt: 155.31lb BMI: 25.1kg/m2 IBW: 142lb RD Assessment: (09/02) Chart reviewed. Labs and meds reviewed. 57yo M, who was admitted for R foot crush injury. Visited pt in the room. Pt reports good appetite with ~75-100% meal intake since admission. Family has been bringing outside foods for pt. No complains of nausea or vomiting. Normal BM. Pt denies any chewing or swallowing difficulty. Pt denies any recent weight loss RHEUMATOLOGIST. Current diet is appropriate and adequate. Current Diet: regular diet Malnutrition Evaluation (09/02) The patient does not meet criteria for a specified degree of malnutrition at this time. Will re-evaluate at follow-up as appropriate. Diet Education Needs Assessment: Diet education not indicated. Nutrition Care Level: low Signed: Vicky Low, MS, RD, LD
--- NOTE | 2018-09-02 18:49 | Progress Note ---
DATE: 09/02/2018 TIME SPENT: 60 minutes. SUBJECTIVE: In the early hours of the morning, I received a phone call from Dr. Hopper. He is seeing him now because apparently Dr. Jethro Singletary does not have a privilege to do the procedure, so Dr. Hopper called me and explained to him that the patient had a crushed injury of the right foot with open fracture, status post closed reduction with pinning and then had gangrenous changes. He was sent to the Wound Care, was admitted by Dr. Singletary. I had him on IV antibiotic. His first toe seems to be progressing with necrosis. 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 I received a call because something that was a privilege, Dr. Barragan was consulted. Dr. Hopper saw the patient. Dr. Barragan came to see the patient later today, and I think they talked to the patient and now the patient would like to wait on surgery and try hyperbaric and intravenous antibiotic. So, we have to arrange intravenous antibiotic with insurance. Discussed with Case Management, discussed with Eladio, and discussed with the patient and his at length, and I called Eladio to make sure that he have referral and approval for hyperbaric before we discharge the patient and apparently that is in the works. I am going to consult Dr. Blankenship, see him tomorrow to give medical clearance for hyperbaric while we are waiting on his approval for IV antibiotic. The patient, who said he is lying in bed comfortably, has no complaints. The patient apparently had sustained a crush injury. He had Dr. Marcos wiley right second and right first toe kevin. He developed ischemic changes. He was sent to the Wound Care. He was admitted from there and now the patient is here. LABORATORY DATA: Reviewed. His white count is 7.8, hemoglobin 14, hematocrit 42. His sedimentation rate is 5. Blood cultures are negative. PHYSICAL EXAMINATION: GENERAL: He is alert, oriented, does not seem to be in acute distress. VITAL SIGNS: Stable, currently afebrile. HEENT: He is not icteric. NECK: Supple. CHEST: Clear. HEART: S1, S2. No S3, S4, or murmur. ABDOMEN: Soft. Bowel sounds present. No tenderness. EXTREMITIES: No edema. The toes are about the same. There is skin discoloration. There is black discoloration noted on the first toe and the second toe. IMPRESSION: Ischemic changes in a patient who had a crushed injury, hardware removed. Concern osteomyelitis. Concern peripheral vascular disease. Continue with IV antibiotic. He is currently on vancomycin and cefepime. We will treat with 8 weeks of IV antibiotic. Hyperbaric to be arranged. The patient now would like to wait to see if we can save the foot. Weekly CBC. Weekly Chem panel. Local care. Discussed at length with the and the patient. MD PATTI Torres/TAHIRA /[id number]
--- NOTE | 2018-09-02 19:00 | NUR ---
BEDSIDE SHIFT REPORT GIVEN TO THE FIRE PREVENTION BUREAU CAPTAIN RN. PT DENIED FURTHER NEEDS.
[2018-09-02] MEDS ORDERED: HYDROMORPHONE 2MG/ML 2 MG/ML ML IV PRN (23:45)
[2018-09-03] VITALS (7 sets, daily range): BP systolic 114–139; BP diastolic 63–75
[2018-09-03] MEDS: CEFEPIME 1GM/NS 0.9% 50 ML 50 ML IV SCH ×2 (04:28→17:38)
[2018-09-03] MEDS: VANCOMYCIN HCL 1.25 GM in SODIUM CHLORIDE 0.9% 250ML 250 ML IV SCH ×2 (04:58→16:07)
--- NOTE | 2018-09-03 13:32 | Progress Note ---
DATE: 09/03/2018 Medicine Progress Note SUBJECTIVE: Podiatry already came and talked with the family. At this time, they recommend hyperbaric chamber instead of surgery at this time. We are awaiting for final recommendation by ID for discharge home. Otherwise, patient is doing well, has no other complaints at this time. PHYSICAL EXAMINATION: VITAL SIGNS: Temperature is 97, pulse 78, respiratory rate 16, blood pressure 174/67, and pulse ox 98% on room air. GENERAL: Not in acute distress. Alert and oriented x3. Cooperative on examination. HEENT: Head is normocephalic and atraumatic. Eyes; pupils are equal, round, and reactive to light bilaterally. Extraocular movements are intact bilaterally. Throat, no evidence of erythema or exudates in the posterior pharynx. Has poor dentition. NECK: Supple. Good range of motion throughout. PULMONARY: Clear to auscultation bilaterally. No wheezing, no rales, no rhonchi, no crackles appreciated. CARDIOVASCULAR: Positive S1, S2. No murmurs, rubs, or gallops appreciated. ABDOMEN: Soft, nondistended, and nontender to palpation. Bowel sounds present. MUSCULOSKELETAL: Strength is 5/5 throughout. No evidence of any muscle deficits on examination. No weakness appreciated. NEUROLOGICAL: Cranial nerves II through XII grossly intact. No evidence of any neurological deficits on exam. SKIN: Intact. Warm to touch. Good cap refill. PSYCHIATRIC: Normal affect and mood. EXTREMITIES: No edema. Good range of motion throughout. LAB FINDINGS: Show white count is 9, hemoglobin is 14.9, hematocrit is 45, platelets of 260. PT 12, INR 0.9, PTT 27. Chemistry reviewed and stable. IMPRESSION: 1. Right foot crush injury status post pinning of the right 1st and 2nd toe with underlying osteomyelitis. 2. Recent crush injury to the right foot. PLAN: At this time, Podiatry has decided against surgery. He is in the process of getting hyperbaric oxygen treatment as an outpatient. We will await for ID to give final IV antibiotic therapy, possibly arrange it at his clinic. Otherwise, if that is arranged and surgery has cleared him, the patient can potentially be discharged home later today and follow up with the Wound Care Clinic. MD CARLOS Rogers/MODL /[id number]
--- NOTE | 2018-09-03 15:44 | NUR ---
Spoke with Suzan with wound care regarding HBO. She states they do not have clearance for HBO yet. Dr. Hollingsworth on unit rounding. Wants to discharge pt today on IV abx and pt to wait for HBO clearance at home. Dr. Hollingsworth spoke to Suzan. She will continue working on clearance for HBO treatment and contact pt. Pt to go to Dr. Hollingsworth's office tomorrow at 10am for IV abx. [address] [facility] [address] [place] [address] Outpatient Wound care clinic [address] [facility] [address] [place] [address]
[2018-09-03] MEDS ORDERED: TYLENOL WITH C1 EACH PO (17:58)
--- NOTE | 2018-09-03 19:09 | Progress Note ---
DATE: 09/03/2018 SUBJECTIVE: Mr. Tran is doing better. There are no new complaints. REVIEW OF SYSTEMS: HEENT: Negative. PULMONARY: Negative. CARDIAC: Negative. : Negative. PHYSICAL EXAMINATION: GENERAL: He is alert, oriented, does not seem to be in acute distress. VITALS: Stable, currently afebrile. HEENT: Not icteric. NECK: Supple. CHEST: Clear. HEART: S1, S2. No murmurs. ABDOMEN: Soft. Bowel sounds present. No tenderness. EXTREMITIES: No edema. He remains with early necrosis of his right big toe. SKIN: No rash. LABORATORY DATA: Reviewed. IMPRESSION: Right foot crush injury with progression to gangrene of the 1st toe perhaps 2nd and early the 3rd. The patient has been seen by several surgeons to consent present time is to continue with IV antibiotic and hyperbaric. I have arranged home IV antibiotic. I am going to discharge the patient with home antibiotic. We are still working on hyperbaric. Continue with local care as ordered. We will follow with you. Thank you so much for asking me to see this patient. MD PATTI Torres/TAHIRA /[id number]
--- NOTE | 2018-09-04 08:57 | Consultation ---
DATE OF CONSULTATION: 09/02/2018 HISTORY OF PRESENTING ILLNESS: This is a 57-year-old male with no past medical history, who was admitted to [facility] approximately one week ago for a worsening infection to his right foot. The patient has had a crush injury to his right foot where a rail car fell on his foot approximately six weeks ago. After the crush injury, he was seen at his [facility] and was determined that he needed to see a reproduction specialist for a multiple fractures and an open fracture to his right foot. He was then seen by a mental health therapist, who recommended an outpatient wound care and the patient was then not able to follow up due to Worker's Comp type of insurance. The patient was then transferred to see an orthopedic surgeon, who performed a reduction with pinning to the right hallux and right 2nd digit, which was performed on 08/12/2018. Upon his followup visit after the surgery, there was noted to be poor wound healing, and the patient was sent to the Wound Care Center where he was seen by another mental health therapist, who determined that there was a significant cellulitis and worsening of the necrosis, so he was admitted to [facility] for IV antibiotics as well as removal of the K-wires. During his hospital course, the infection appears to be resolving and the patient was on the schedule for surgery for a biopsy and partial amputation. However, the surgeon did not have privileges at the current facility, so we are being consulted today for further evaluation. The patient relates to improvement in pain. Currently denies nausea, vomiting, fever, chills, chest pain, or shortness of breath. PAST MEDICAL HISTORY: None. ALLERGIES: NO KNOWN DRUG ALLERGIES. MEDICATIONS: None. PAST SURGICAL HISTORY: As detailed above. Right percutaneous pinning of the hallux and right 2nd digit. FAMILY HISTORY: Diabetes and hypertension. SOCIAL HISTORY: Denies drinking, denies illicit drug usage, but does have a history of smoking one pack per day, and has reduced the smoking. PHYSICAL EXAMINATION: GENERAL: Alert and oriented x3, in no apparent distress. VITAL SIGNS: Today temperature is 97.9, heart rate 78, respiratory rate 18, blood pressure 117/75, and pulse ox is 99% on room air. PROBLEM FOCUSED LOWER EXTREMITY PHYSICAL EXAM: VASCULAR: Dorsalis pedis and posterior tibial pulses are palpable. There is pedal hair growth noted to the level of the digits. Capillary refill time is noted to the right 2nd digit as well as the right 3rd digit. There is significant discoloration with signs of gangrene to the right hallux, which appears to be demarcating around the level of the 1st metatarsophalangeal joint. There is some capillary refill time to the medial flap of the patient's right hallux. NEUROLOGICAL: Sensation is diminished to digits 1, 2, and 3 with paresthesias present to the distal aspect of the forefoot. MUSCULOSKELETAL: Pain on palpation is noted along the right forefoot to multiple digits after the crush injury. DERMATOLOGIC: Gangrenous changes noted to the patient's right hallux extending to approximately the level of the MPJ. However, capillary refill time is noted to along the medial aspect of the right hallux, but not to the distal aspect of the right hallux. Dry necrosis is noted along the lateral aspect of the right hallux extending to the level of the metatarsophalangeal joint. Wound at the distal tip of the right hallux as well as the right 2nd digit is present from the previous percutaneous pinning procedure. Erythema, edema appeared to have resolved. There is no active drainage. No other open wounds are present at this time. LABORATORY DATA: White blood cell count is 9.4, hemoglobin 14.9, hematocrit 45.2, and platelet count 260. Sedimentation rate is 5. Sodium 135, potassium 4.1, chloride 104, CO2 of 25, BUN 11, and creatinine 0.76. X-RAYS: X-rays from August 26, 2018 reveal postoperative changes of the 1st and 2nd digit with percutaneous pinning, which is noted to be in good anatomical alignment. MRI from 08/27/2018 revealed marrow edema within the phalanges of 1st, 2nd, and middle digits in the setting of fractures and percutaneous pinning removal. Evaluation for osteomyelitis is limited, however, no abscess was noted. ASSESSMENT: 1. Crush injury to the right forefoot including multiple fractures of the right hallux, 2nd digit and 3rd digit, status post percutaneous pinning followed by pin removal with cellulitis. 2. Avascular necrosis with gangrenous changes from crush injury. 3. Tobacco abuse. 4. Cellulitis, right foot. PLAN: The patient was seen and evaluated. Discussed condition, x-rays, MRI, previous surgery, antibiotics, wound care, and tobacco abuse with the patient in detail. Discussed with patient at this time. The infection appears to be resolving and there is no acute abscess which would require immediate surgery. Discussed with the patient, there does appear to be some capillary refill time to the medial aspect of the patient's right hallux and the 2nd and 3rd digit do appear viable at this time. Recommendation at this time will be to discharge the patient with IV antibiotics and have him return to the Wound Care Center to receive immediate hyperbaric oxygen therapy for several weeks. We will allow the right hallux to have the gangrenous tissue to be demarcated prior to proceeding with an amputation. The patient and patient's agree with this. He will be stable to be discharged from Podiatry standpoint on IV antibiotics with quick followup to the Wound Care Center for hyperbaric oxygen therapy. Discussed with the patient in detail that if hyperbaric oxygen does not improve, the appearance of the right hallux on the right 2nd and 3rd digit, there is a chance the patient may need to proceed with a transmetatarsal amputation. The patient and patient's agreed to this. The Podiatry Service will continue to monitor as an inpatient. ABBY Morales /[id number]
--- NOTE | 2018-09-04 18:30 | Consultation ---
DATE OF CONSULTATION: 09/03/2018 HBO Consult REASON FOR CONSULTATION: Crush injury right foot. HISTORY OF PRESENT ILLNESS: The patient is a 57-year-old male, who sustained a crushing injury on the weekend of August 01. The patient states that he was wearing a steel toe boot as the work requires. The crush injury occurred when a large metal object fell onto his foot. He was seen initially at a physician's office and then referred to an Urgent Care Center and from there he was transferred to the emergency room at [facility]. He was admitted and an orthopedic consultation was obtained after it was found that the patient had several fractured toes. The patient was discharged after surgery and was referred to the Wound Care Center where apparently this soft tissue was undergoing ischemic changes. The patient was then readmitted from the Wound Care Center last on August 26. The patient has been noted to be undergoing soft tissue ischemia of the right forefoot and toes. A request for HBO evaluation is now being done. The patient denies any significant past medical history. He denies diabetes, any heart disease, liver disease, kidney disease, or any past history of pneumonia or malignancy. PAST SURGICAL HISTORY: Only notable for the recent surgery on his toes. He does state that he smokes 1 to 2 packs per day for many years, but has not smoked since the time of the injury. PERTINENT PHYSICAL EXAMINATION: VITAL SIGNS: The patient is afebrile. The vital signs are stable. HEENT: Reveals there to be no abnormalities. The patient denies any history of problems with his ears or sinuses especially equalizing them. CHEST: Clear. There is no coughing or wheezing. ABDOMEN: Benign. CARDIAC: Has regular rhythm, S1, S2 without murmurs, gallops, or rubs. EXTREMITIES: The exam of the foot reveals there to be marked ischemic changes of the right forefoot involving multiple toes as well as the forefoot. IMAGING DATA: The chest x-ray is clear without any acute or chronic changes. The EKG shows normal sinus rhythm. IMPRESSION: Crushing injury with ischemic necrosis with ischemia and possible soft tissue loss of right foot. PLAN: I believe that hyperbaric oxygen would benefit this patient. I would recommend that he receive initially 20 dives at 2 MIKY for 90 minutes in order to try to salvage any tissue that is salvageable. Thank you for allowing me to participate in the care of this patient. MD MARÍA ELENA Cash/TAHIRA /[id number]
--- NOTE | 2018-09-05 08:32 | Discharge Summary ---
DISCHARGE DIAGNOSES: 1. Right foot crush injury, status post pinning of the right 1st and 2nd toe with underlying osteomyelitis. 2. Recent crush injury to the right foot. 3. Avascular necrosis with gangrenous changes of foot from crush injury. 4. Cellulitis of the right foot. CONSULTANTS: Podiatry and Infectious Disease. PHYSICAL EXAMINATION: VITAL SIGNS: Temperature 97.9, pulse 106, respiratory rate is 18, blood pressure 139/63, and pulse ox 98% on room air. LAB FINDINGS: Show white count 9, hemoglobin 14.9, hematocrit 45, and platelets of 260. Coagulation; PT 12 INR 0.9, PTT 27.5. Chemistry; sodium 135, potassium 4.1, chloride 104, bicarbonate 25, anion gap of 10, BUN is 11, creatinine is 0.76, glucose is 98, and calcium is 10.2. MICROBIOLOGY: Blood cultures were negative. Urine cultures were negative. IMAGING STUDIES: Foot x-ray shows postoperative changes, 1st and 2nd digits of the right foot. There is no evidence of osteomyelitis. MRI of the foot shows bone marrow edema with toe. Concerning for possible osteomyelitis, but no evidence of any abscess collection. HOSPITAL COURSE: 57-year-old male, who was sent in by his marketing analytics specialist as a direct admission due to a recent crush injury to his right foot, 1st and 2nd toes. The patient apparently had some pinning done by Orthopedics. The patient then presents to marketing analytics specialist office for further evaluation and management. While at the office, there was some concern for underlying infection and concerns for osteomyelitis and sent into the [facility] as a direct admission. The patient was admitted, ID and Podiatry were reconsulted. The patient was started on broad-spectrum IV antibiotics per ID recommendations. The patient was discharged eventually on IV antibiotics when he picked up by Dr. Hollingsworth's office on 09/04/2018. In relation to Podiatry, it seems like there was some confusion between the treatment of podiatrists due to possible underlying privileges. The patient was then transferred from Dr. Singletary to Dr. Hopper. After further discussion with Dr. Hopper and his consultation note, it states that the patient will benefit from continuous IV antibiotic therapy and immediately get hyperbaric oxygen therapy treatment for several weeks to salvage the toes. He was cleared for discharge by Podiatry and will follow very closely with Podiatry as well as ID. He was advised to follow up with hyperbaric oxygen Wound Care Clinic on 09/04/2018, as well as ID on 09/04/2018, to pickup IV antibiotics at Dr. Hollingsworth's office. I discussed this with the , the patient and nursing present and they verbalized understanding and agreed to plan of care. On the day of discharge, vital signs stable, labs reviewed and stable. The patient was seen and evaluated, examined thoroughly on the day of discharge. No other complaints. The patient verbalized understanding and agrees with plan of care to follow up as an outpatient with the primary care physician in 1 week and Podiatry in 1 week. Hyperbaric oxygen Wound Care Clinic on 09/04/2018 and Infectious Disease, Dr. Hollingsworth on 09/04/2018, effect of IV antibiotic therapy. Family verbalized understanding. MEDICATIONS: See med reconciliation form. DISPOSITION: Home. CONDITION: Stable. DIET: Heart healthy. In the event of any worsening symptoms, the patient was advised to come back to the ED for further evaluation. Discharge summary took greater than 35 minutes. MD CARLOS Rogers/TAHIRA /[id number]
== END 2018-09-03 19:20 | disposition home or self-care (01) | DRG 560 ==
LOC: ER 16:20 → ERHOLD 18:14 → MED/SURG2 21:44
PROVIDERS: ADMIT Internal Medicine; ATTEND Internal Medicine
PROC: 02HV33Z Insertion of Infusion Device into Superior Vena Cava, Percutaneous Approach (ICD-10-PCS; principal; 2018-09-01)
DX: T84.69XA Infection and inflammatory reaction due to internal fixation device of other site, initial encounter (principal); L03.115 Cellulitis of right lower limb; L02.611 Cutaneous abscess of right foot; M87.274 Osteonecrosis due to previous trauma, right foot; L03.032 Cellulitis of left toe; L03.031 Cellulitis of right toe; F17.210 Nicotine dependence, cigarettes, uncomplicated; S97.81XA Crushing injury of right foot, initial encounter; L76.82 Other postprocedural complications of skin and subcutaneous tissue; I73.1 Thromboangiitis obliterans [Buerger's disease]; S92.911G Unspecified fracture of right toe(s), subsequent encounter for fracture with delayed healing
CPT/HCPCS: 36415; 36569; 71045; 74470; 80048; 80053; 80202; 81001; 82948; 83605; 85025; 85610; 85651; 85730; 86140; 87040; 87086; 93926; 99284; J0692; J1650; J3370; J7030; J7050

== ENCOUNTER 2018-09-05 11:48 | Outpatient (RCR) | payer OTHER ==
[2018-08-22 16:17] LABS: BASOPHILS % 0.5 % (0.0-1.0); EOSINOPHILS # (AUTO) 0.1 (0.0-0.4); EOSINOPHILS % 1.4 % (0.0-6.0); HEMATOCRIT 48.4 % (38.2-49.6); HEMOGLOBIN 16.6 g/dL (14.0-18.0); LYMPHOCYTES # (AUTO) 1.9 (1.0-3.2); MEAN CORPUSCULAR HEMOGLOBIN 29.3 pg (28-32); MEAN CORPUSCULAR HGB CONC 34.3 g/dL (31-35); MEAN CORPUSCULAR VOLUME 85.4 fL (81-99); MONOCYTES # (AUTO) 0.8 (0.2-0.8); MONOCYTES % 9.2 % (4.4-11.3); NEUTROPHILS # (AUTO) 5.8 (2.1-6.9); NEUTROPHILS % 66.6 % (38.7-80.0); PLATELET COUNT 309 x10e3/uL (140-360); RED BLOOD COUNT 5.67 x10e6/uL (4.3-5.7); RED CELL DISTRIBUTION WIDTH 12.6 % (11.7-14.4)
[2018-08-22 16:34] LABS: ALANINE AMINOTRANSFERASE 54 IU/L (0-55); ALBUMIN 3.7 g/dL (3.5-5.0); ALBUMIN/GLOBULIN RATIO 1.2 (0.8-2.0); ALKALINE PHOSPHATASE 110 IU/L (40-150); BLOOD UREA NITROGEN 14 mg/dL (7-26); BUN/CREATININE RATIO 19 (6-25); CALCIUM 10.7 mg/dL (8.4-10.2); CARBON DIOXIDE 23 mmol/L (22-29); CHLORIDE 104 mmol/L (98-107); CREATININE, SERUM 0.75 mg/dL (0.72-1.25); EST GLOMERULAR FILTRATION RATE > 60 ML/MIN (60-); GLUCOSE 102 mg/dL (74-118); SODIUM 134 mmol/L (136-145)
[~2018-09-05 11:48] MED LIST changes: +SILVER SULFADIAZINE 50GM CREAM ONE; +TYLENOL WITH C1 EACH PO
== END 2018-09-07 ==
LOC: WCC 11:48
PROVIDERS: ATTEND Podiatrist
DX: S91.201A Unspecified open wound of right great toe with damage to nail, initial encounter (principal); S92.411A Displaced fracture of proximal phalanx of right great toe, initial encounter for closed fracture; S92.511A Displaced fracture of proximal phalanx of right lesser toe(s), initial encounter for closed fracture; S93.114A Dislocation of interphalangeal joint of right lesser toe(s), initial encounter; S91.209A Unspecified open wound of unspecified toe(s) with damage to nail, initial encounter; S97.111A Crushing injury of right great toe, initial encounter; X58.XXXA Exposure to other specified factors, initial encounter
CPT/HCPCS: 36415; 80053; 83036; 84134; 85025; 86140; 87071; 87075; 87186; 87205; 97597; 99203; 99213; G0277

== ENCOUNTER → 2018-10-08 | Outpatient (RCR) | payer OTHER ==
[~2018-10-08] MED LIST changes: +COLLAGENASE OINTMENT 30 GM TUBE ONE; +MINERAL OIL/PETROLAT/GLYCERI 6OZ BTL ONE
== END ==
LOC: WCC 09-08 14:43
PROVIDERS: ATTEND Podiatrist
DX: S91.201A Unspecified open wound of right great toe with damage to nail, initial encounter (principal); S93.114A Dislocation of interphalangeal joint of right lesser toe(s), initial encounter; S92.511A Displaced fracture of proximal phalanx of right lesser toe(s), initial encounter for closed fracture; S92.411A Displaced fracture of proximal phalanx of right great toe, initial encounter for closed fracture; S91.209A Unspecified open wound of unspecified toe(s) with damage to nail, initial encounter; S97.111A Crushing injury of right great toe, initial encounter; X58.XXXA Exposure to other specified factors, initial encounter
CPT/HCPCS: 11042 ×3; 97597; 97598; 97602 ×14; 99212 ×2; 99213; G0277 ×19

== ENCOUNTER → 2018-10-23 | Outpatient (CLI) | payer OTHER ==
[~2018-10-23] MED LIST changes: -COLLAGENASE OINTMENT 30 GM TUBE ONE; +GADOBENATE DIMEGLUMINE 1 ML IV ONE; -MINERAL OIL/PETROLAT/GLYCERI 6OZ BTL ONE; -SILVER SULFADIAZINE 50GM CREAM ONE
--- NOTE | 2018-10-23 13:45 | Diagnostic Imaging Report ---
TECHNIQUE: Magnetic resonance imaging of the RIGHT foot was performed WITHOUT injected contrast. HISTORY: Open wound of the great toe COMPARISON: August 27, 2018 DISCUSSION: Prior percutaneous pinning of the phalanges of the first and second toe with residual signal change. Prior transverse fracture of the proximal phalanx of the hallux is nonunited with persistent edema. Mild lateral subluxation at the PIP joint of the second toe. Probable healing transverse fracture of the proximal phalanx of the second toe. Mild soft tissue swelling of the forefoot. IMPRESSION: Nonunited transverse fracture of the proximal phalanx of the hallux. Residual edema within the first and second toes with prior pin placement and removal. Evaluation for osteomyelitis is limited, however favored against. Signed by: Dr. Ernie Honeycutt M.D. on 10/23/2018 1:41 PM
== END ==
LOC: MRI 10:29
PROVIDERS: ATTEND Podiatrist
DX: S91.201A Unspecified open wound of right great toe with damage to nail, initial encounter (principal)
CPT/HCPCS: 73720; A9577

== ENCOUNTER 2018-11-07 14:47 | Outpatient (RCR) | payer OTHER ==
[~2018-11-07 14:47] MED LIST changes: +B&O 60MG R/S 60 MG SUPP PR ONE; +COLLAGENASE OINTMENT 30 GM TUBE ONE; -GADOBENATE DIMEGLUMINE 1 ML IV ONE; +IOPAMIDOL 610MG/1ML 300 MG/ML VIAL IV ONE; +LIDOCAINE VISC 2% SOLN 15 ML UDC ONE; +LIDOCAINE/PRILOCAINE 2.5-2.5% KIT ONE
[2018-11-07] MEDS ORDERED: COLLAGENASE OINTMENT 30 GM TUBE ONE (18:32)
[2018-11-07] MEDS ORDERED: LIDOCAINE/PRILOCAINE 2.5-2.5% KIT ONE (18:32)
== END 2018-11-08 ==
LOC: WCC 14:47
PROVIDERS: ATTEND Podiatrist
DX: S91.201A Unspecified open wound of right great toe with damage to nail, initial encounter (principal); S92.411A Displaced fracture of proximal phalanx of right great toe, initial encounter for closed fracture; S92.511A Displaced fracture of proximal phalanx of right lesser toe(s), initial encounter for closed fracture; S93.114A Dislocation of interphalangeal joint of right lesser toe(s), initial encounter; X58.XXXA Exposure to other specified factors, initial encounter
CPT/HCPCS: 11042 ×2; 11044 ×2; 28052; 87071; 87075; 87186; 87205; 88307; 97602; 99212; 99213; Q9967; 87070; 88305

== ENCOUNTER 2018-12-05 11:23 | Outpatient (RCR) | payer OTHER ==
[~2018-12-05 11:23] MED LIST changes: -B&O 60MG R/S 60 MG SUPP PR ONE; -IOPAMIDOL 610MG/1ML 300 MG/ML VIAL IV ONE; -LIDOCAINE VISC 2% SOLN 15 ML UDC ONE; +MUPIROCIN 2% OINT 22 GM TUBE ONE
[2018-12-05] MEDS ORDERED: COLLAGENASE OINTMENT 30 GM TUBE ONE (11:46)
== END 2018-12-08 ==
LOC: WCC 11:23
PROVIDERS: ATTEND Podiatrist
DX: S91.201A Unspecified open wound of right great toe with damage to nail, initial encounter (principal); M86.68 Other chronic osteomyelitis, other site; S92.411A Displaced fracture of proximal phalanx of right great toe, initial encounter for closed fracture; S92.511A Displaced fracture of proximal phalanx of right lesser toe(s), initial encounter for closed fracture; S93.114A Dislocation of interphalangeal joint of right lesser toe(s), initial encounter; X58.XXXA Exposure to other specified factors, initial encounter
CPT/HCPCS: 11042 ×2; 11044 ×2; 15004; 17250; 82306; 84134; 97602 ×6; 99212 ×8; 99213; G0277 ×19

== ENCOUNTER 2019-01-07 14:54 | Outpatient (RCR) | payer OTHER ==
[~2019-01-07 14:54] MED LIST changes: -COLLAGENASE OINTMENT 30 GM TUBE ONE; +LIDOCAINE VISC 2% SOLN 15 ML UDC ONE; +MINERAL OIL/PETROLAT/GLYCERI 6OZ BTL ONE; -MUPIROCIN 2% OINT 22 GM TUBE ONE
== END 2019-01-08 ==
LOC: WCC 14:54
PROVIDERS: ATTEND Podiatrist
DX: M86.68 Other chronic osteomyelitis, other site (principal); S91.201A Unspecified open wound of right great toe with damage to nail, initial encounter; S92.411A Displaced fracture of proximal phalanx of right great toe, initial encounter for closed fracture; S92.511A Displaced fracture of proximal phalanx of right lesser toe(s), initial encounter for closed fracture; S93.114A Dislocation of interphalangeal joint of right lesser toe(s), initial encounter; X58.XXXA Exposure to other specified factors, initial encounter
CPT/HCPCS: 11042 ×3; 15275 ×2; 99213; G0277; Q4101; Q4133

== ENCOUNTER 2019-01-28 14:10 | Outpatient (RCR) | payer OTHER ==
[~2019-01-28 14:10] MED LIST changes: -LIDOCAINE VISC 2% SOLN 15 ML UDC ONE; -LIDOCAINE/PRILOCAINE 2.5-2.5% KIT ONE; -MINERAL OIL/PETROLAT/GLYCERI 6OZ BTL ONE
[2019-01-28] MEDS ORDERED: LIDOCAINE/PRILOCAINE 2.5-2.5% KIT ONE (14:35)
== END 2019-02-07 ==
LOC: WCC 14:10
PROVIDERS: ATTEND Podiatrist
DX: S91.201A Unspecified open wound of right great toe with damage to nail, initial encounter (principal); M86.68 Other chronic osteomyelitis, other site; S92.411A Displaced fracture of proximal phalanx of right great toe, initial encounter for closed fracture; S92.511A Displaced fracture of proximal phalanx of right lesser toe(s), initial encounter for closed fracture; S93.114A Dislocation of interphalangeal joint of right lesser toe(s), initial encounter; X58.XXXA Exposure to other specified factors, initial encounter
CPT/HCPCS: 11042 ×2; 15275; Q4133

== ENCOUNTER 2019-05-08 12:20 | Outpatient (RCR) | payer OTHER ==
[~2019-05-08 12:20] MED LIST changes: +LIDOCAINE/PRILOCAINE 2.5-2.5% KIT ONE; +MUPIROCIN 2% OINT 22 GM TUBE ONE
== END 2019-05-09 ==
LOC: WCC 12:20
PROVIDERS: ATTEND Podiatrist
DX: S91.201A Unspecified open wound of right great toe with damage to nail, initial encounter (principal); M86.68 Other chronic osteomyelitis, other site; S93.114A Dislocation of interphalangeal joint of right lesser toe(s), initial encounter; S92.511A Displaced fracture of proximal phalanx of right lesser toe(s), initial encounter for closed fracture; S92.411A Displaced fracture of proximal phalanx of right great toe, initial encounter for closed fracture; B96.89 Other specified bacterial agents as the cause of diseases classified elsewhere; X58.XXXA Exposure to other specified factors, initial encounter
CPT/HCPCS: 11042 ×3; 15275; 99212 ×3; G0277 ×19; Q4132

== ENCOUNTER 2019-06-03 15:02 | Outpatient (RCR) | payer OTHER ==
[~2019-06-03 15:02] MED LIST changes: -MUPIROCIN 2% OINT 22 GM TUBE ONE
== END 2019-06-09 ==
LOC: WCC 15:02
PROVIDERS: ATTEND Podiatrist
DX: M86.68 Other chronic osteomyelitis, other site (principal); S91.201A Unspecified open wound of right great toe with damage to nail, initial encounter; S93.114A Dislocation of interphalangeal joint of right lesser toe(s), initial encounter; S92.511A Displaced fracture of proximal phalanx of right lesser toe(s), initial encounter for closed fracture; S92.411A Displaced fracture of proximal phalanx of right great toe, initial encounter for closed fracture; B96.89 Other specified bacterial agents as the cause of diseases classified elsewhere; X58.XXXA Exposure to other specified factors, initial encounter; Z01.810 Encounter for preprocedural cardiovascular examination
CPT/HCPCS: 11042 ×2; 99212 ×2; G0277

== ENCOUNTER 2019-07-08 13:25 | Outpatient (RCR) | payer OTHER ==
[2019-07-08] MEDS ORDERED: LIDOCAINE/PRILOCAINE 2.5-2.5% KIT ONE (13:47)
== END 2019-07-09 ==
LOC: WCC 13:25
PROVIDERS: ATTEND Podiatrist
DX: S91.201A Unspecified open wound of right great toe with damage to nail, initial encounter (principal); M86.68 Other chronic osteomyelitis, other site; S92.411A Displaced fracture of proximal phalanx of right great toe, initial encounter for closed fracture; S92.511A Displaced fracture of proximal phalanx of right lesser toe(s), initial encounter for closed fracture; S93.114A Dislocation of interphalangeal joint of right lesser toe(s), initial encounter; M24.576 Contracture, unspecified foot; B96.89 Other specified bacterial agents as the cause of diseases classified elsewhere; X58.XXXA Exposure to other specified factors, initial encounter; Z01.810 Encounter for preprocedural cardiovascular examination
CPT/HCPCS: 11042 ×4; 15275; 99212; Q4132

== ENCOUNTER 2019-08-05 14:16 | Outpatient (RCR) | payer OTHER ==
[~2019-08-05 14:16] MED LIST changes: +SILVER SULFADIAZINE 50GM CREAM ONE; +TRIAMCINOLONE ACET 0.1% CREAM 15 GM TUBE ONE
== END 2019-08-09 ==
LOC: WCC 14:16
PROVIDERS: ATTEND Podiatrist
DX: S91.201A Unspecified open wound of right great toe with damage to nail, initial encounter (principal); M86.68 Other chronic osteomyelitis, other site; S92.411A Displaced fracture of proximal phalanx of right great toe, initial encounter for closed fracture; S92.511A Displaced fracture of proximal phalanx of right lesser toe(s), initial encounter for closed fracture; S93.114A Dislocation of interphalangeal joint of right lesser toe(s), initial encounter; M24.576 Contracture, unspecified foot; B96.89 Other specified bacterial agents as the cause of diseases classified elsewhere; X58.XXXA Exposure to other specified factors, initial encounter; Z01.810 Encounter for preprocedural cardiovascular examination
CPT/HCPCS: 88305; 88311

== ENCOUNTER 2019-09-02 14:48 | Outpatient (RCR) | payer OTHER ==
[~2019-09-02 14:48] MED LIST changes: -TRIAMCINOLONE ACET 0.1% CREAM 15 GM TUBE ONE
[2019-09-02] MEDS ORDERED: LIDOCAINE/PRILOCAINE 2.5-2.5% KIT ONE (15:24)
[2019-09-02] MEDS ORDERED: LIDOCAINE HCL 2% LOCAL 20 ML VIAL ONE (15:24)
== END 2019-09-08 ==
LOC: WCC 14:48
PROVIDERS: ATTEND Podiatrist
DX: M86.68 Other chronic osteomyelitis, other site (principal); S91.201A Unspecified open wound of right great toe with damage to nail, initial encounter; S92.411A Displaced fracture of proximal phalanx of right great toe, initial encounter for closed fracture; S92.511A Displaced fracture of proximal phalanx of right lesser toe(s), initial encounter for closed fracture; S93.114A Dislocation of interphalangeal joint of right lesser toe(s), initial encounter; L60.9 Nail disorder, unspecified; M24.576 Contracture, unspecified foot; B96.89 Other specified bacterial agents as the cause of diseases classified elsewhere; X58.XXXA Exposure to other specified factors, initial encounter; Z01.810 Encounter for preprocedural cardiovascular examination
CPT/HCPCS: 11044 ×2; 11720; 88304; 99212; J2001

== ENCOUNTER 2019-10-07 13:47 | Outpatient (RCR) | payer OTHER ==
[~2019-10-07 13:47] MED LIST changes: -SILVER SULFADIAZINE 50GM CREAM ONE
== END 2019-10-09 ==
LOC: WCC 13:47
PROVIDERS: ATTEND Podiatrist
DX: S91.201A Unspecified open wound of right great toe with damage to nail, initial encounter (principal); M86.68 Other chronic osteomyelitis, other site; L60.9 Nail disorder, unspecified; M25.476 Effusion, unspecified foot; S92.411A Displaced fracture of proximal phalanx of right great toe, initial encounter for closed fracture; S92.511A Displaced fracture of proximal phalanx of right lesser toe(s), initial encounter for closed fracture; S93.114A Dislocation of interphalangeal joint of right lesser toe(s), initial encounter; B96.89 Other specified bacterial agents as the cause of diseases classified elsewhere; X58.XXXA Exposure to other specified factors, initial encounter; Z01.810 Encounter for preprocedural cardiovascular examination

== ENCOUNTER 2019-11-04 12:19 | Outpatient (RCR) | payer OTHER | END 2019-11-09 | LOC: WCC 12:19 | PROVIDERS: ATTEND Podiatrist | DX: L60.9 Nail disorder, unspecified (principal); S91.201A Unspecified open wound of right great toe with damage to nail, initial encounter; S92.411A Displaced fracture of proximal phalanx of right great toe, initial encounter for closed fracture; S92.511A Displaced fracture of proximal phalanx of right lesser toe(s), initial encounter for closed fracture; S93.114A Dislocation of interphalangeal joint of right lesser toe(s), initial encounter; M24.576 Contracture, unspecified foot; X58.XXXA Exposure to other specified factors, initial encounter; Z01.810 Encounter for preprocedural cardiovascular examination ==

== ENCOUNTER → 2019-12-09 | Outpatient (RCR) | payer OTHER | LOC: WCC 11-11 13:46 | PROVIDERS: ATTEND Podiatrist | DX: L60.9 Nail disorder, unspecified (principal); S91.201A Unspecified open wound of right great toe with damage to nail, initial encounter; S92.411A Displaced fracture of proximal phalanx of right great toe, initial encounter for closed fracture; S92.511A Displaced fracture of proximal phalanx of right lesser toe(s), initial encounter for closed fracture; S93.114A Dislocation of interphalangeal joint of right lesser toe(s), initial encounter; M24.576 Contracture, unspecified foot; X58.XXXA Exposure to other specified factors, initial encounter; Z01.810 Encounter for preprocedural cardiovascular examination ==

== ENCOUNTER 2020-01-06 14:18 | Outpatient (RCR) | payer OTHER ==
[2019-12-23 17:37] LABS: BASOPHILS % 0.5 % (0.0-1.0); EOSINOPHILS # (AUTO) 0.2 (0.0-0.4); HEMOGLOBIN 16.9 g/dL (14.0-18.0); LYMPHOCYTES % 39.8 % (18.0-39.1); MEAN CORPUSCULAR HEMOGLOBIN 28.6 pg (28-32); MEAN CORPUSCULAR HGB CONC 33.1 g/dL (31-35); MEAN CORPUSCULAR VOLUME 86.4 fL (81-99); MONOCYTES # (AUTO) 0.7 (0.2-0.8); MONOCYTES % 9.6 % (4.4-11.3); NEUTROPHILS # (AUTO) 3.5 (2.1-6.9); NEUTROPHILS % 46.8 % (38.7-80.0); PLATELET COUNT 271 x10e3/uL (140-360); RED CELL DISTRIBUTION WIDTH 13.6 % (11.7-14.4)
[2019-12-23 17:56] LABS: ALANINE AMINOTRANSFERASE 16 IU/L (0-55); ALBUMIN 3.9 g/dL (3.5-5.0); ALBUMIN/GLOBULIN RATIO 1.5 (0.8-2.0); ALKALINE PHOSPHATASE 85 IU/L (40-150); ANION GAP 12.3 mmol/L (8-16); BLOOD UREA NITROGEN 12 mg/dL (7-26); BUN/CREATININE RATIO 15 (6-25); CALCIUM 10.1 mg/dL (8.4-10.2); CARBON DIOXIDE 22 mmol/L (22-29); CHLORIDE 110 mmol/L (98-107); CREATININE, SERUM 0.79 mg/dL (0.72-1.25); EST GLOMERULAR FILTRATION RATE > 60 ML/MIN (60-); GLUCOSE 97 mg/dL (74-118); POTASSIUM 4.3 mmol/L (3.5-5.1); SODIUM 140 mmol/L (136-145)
== END 2020-01-09 ==
LOC: WCC 14:18
PROVIDERS: ATTEND Podiatrist
DX: L60.9 Nail disorder, unspecified (principal); M24.576 Contracture, unspecified foot; S91.201A Unspecified open wound of right great toe with damage to nail, initial encounter; S92.411A Displaced fracture of proximal phalanx of right great toe, initial encounter for closed fracture; S92.511A Displaced fracture of proximal phalanx of right lesser toe(s), initial encounter for closed fracture; S93.114A Dislocation of interphalangeal joint of right lesser toe(s), initial encounter; X58.XXXA Exposure to other specified factors, initial encounter; Z01.810 Encounter for preprocedural cardiovascular examination
CPT/HCPCS: 11042 ×3; 15275; 36415; 80053; 84134; 85025; 85651; 86140; Q4101

== ENCOUNTER 2020-01-27 13:40 | Outpatient (RCR) | payer OTHER ==
[~2020-01-27 13:40] MED LIST changes: -LIDOCAINE/PRILOCAINE 2.5-2.5% KIT ONE
[2020-01-27] MEDS ORDERED: LIDOCAINE/PRILOCAINE 2.5-2.5% KIT ONE (14:03)
== END 2020-02-08 ==
LOC: WCC 13:40
PROVIDERS: ATTEND Podiatrist
DX: L60.9 Nail disorder, unspecified (principal); M24.576 Contracture, unspecified foot; S91.201A Unspecified open wound of right great toe with damage to nail, initial encounter; S92.411A Displaced fracture of proximal phalanx of right great toe, initial encounter for closed fracture; S92.511A Displaced fracture of proximal phalanx of right lesser toe(s), initial encounter for closed fracture; S93.114A Dislocation of interphalangeal joint of right lesser toe(s), initial encounter; X58.XXXA Exposure to other specified factors, initial encounter; Z01.810 Encounter for preprocedural cardiovascular examination
CPT/HCPCS: 11042; 15275; 97597; Q4101

== ENCOUNTER 2020-03-09 14:54 | Outpatient (RCR) | payer OTHER ==
[~2020-03-09 14:54] MED LIST changes: +LIDOCAINE VISC 2% SOLN 15 ML UDC ONE; +LIDOCAINE/PRILOCAINE 2.5-2.5% KIT ONE
== END 2020-03-10 ==
LOC: WCC 14:54
PROVIDERS: ATTEND Podiatrist
DX: L60.9 Nail disorder, unspecified (principal); M24.576 Contracture, unspecified foot; S91.201A Unspecified open wound of right great toe with damage to nail, initial encounter; S92.411A Displaced fracture of proximal phalanx of right great toe, initial encounter for closed fracture; S92.511A Displaced fracture of proximal phalanx of right lesser toe(s), initial encounter for closed fracture; S93.114A Dislocation of interphalangeal joint of right lesser toe(s), initial encounter; X58.XXXA Exposure to other specified factors, initial encounter; Z01.810 Encounter for preprocedural cardiovascular examination

== ENCOUNTER 2020-04-06 13:34 | Outpatient (RCR) | payer OTHER ==
[~2020-04-06 13:34] MED LIST changes: -LIDOCAINE VISC 2% SOLN 15 ML UDC ONE
== END 2020-04-10 ==
LOC: WCC 13:34
PROVIDERS: ATTEND Podiatrist
DX: Z01.810 Encounter for preprocedural cardiovascular examination (principal); L60.9 Nail disorder, unspecified; M24.576 Contracture, unspecified foot; S91.201A Unspecified open wound of right great toe with damage to nail, initial encounter; S92.411A Displaced fracture of proximal phalanx of right great toe, initial encounter for closed fracture; S92.511A Displaced fracture of proximal phalanx of right lesser toe(s), initial encounter for closed fracture; S93.114A Dislocation of interphalangeal joint of right lesser toe(s), initial encounter; X58.XXXA Exposure to other specified factors, initial encounter
CPT/HCPCS: 87071; 87075; 87205

== ENCOUNTER 2020-05-04 16:00 | Outpatient (RCR) | payer OTHER ==
[~2020-05-04 16:00] MED LIST changes: -LIDOCAINE/PRILOCAINE 2.5-2.5% KIT ONE
== END 2020-05-08 ==
LOC: WCC 16:00
PROVIDERS: ATTEND Podiatrist
DX: L60.9 Nail disorder, unspecified (principal); M24.576 Contracture, unspecified foot; S91.201A Unspecified open wound of right great toe with damage to nail, initial encounter; S92.411A Displaced fracture of proximal phalanx of right great toe, initial encounter for closed fracture; S92.511A Displaced fracture of proximal phalanx of right lesser toe(s), initial encounter for closed fracture; S93.114A Dislocation of interphalangeal joint of right lesser toe(s), initial encounter; X58.XXXA Exposure to other specified factors, initial encounter; Z01.810 Encounter for preprocedural cardiovascular examination

== ENCOUNTER → 2020-06-08 | Outpatient (RCR) | payer OTHER ==
[~2020-06-08] MED LIST changes: +LIDOCAINE/PRILOCAINE 2.5-2.5% KIT ONE; +SODIUM CHLORIDE 0.9% INJ 250 ML BAG ONE
== END ==
LOC: WCC 05-11 14:53
PROVIDERS: ATTEND Podiatrist
DX: L60.9 Nail disorder, unspecified (principal); M24.576 Contracture, unspecified foot; S91.201A Unspecified open wound of right great toe with damage to nail, initial encounter; S93.114A Dislocation of interphalangeal joint of right lesser toe(s), initial encounter; S92.511A Displaced fracture of proximal phalanx of right lesser toe(s), initial encounter for closed fracture; S92.411A Displaced fracture of proximal phalanx of right great toe, initial encounter for closed fracture; X58.XXXA Exposure to other specified factors, initial encounter; Z01.810 Encounter for preprocedural cardiovascular examination
CPT/HCPCS: 10140; 11042 ×2; 15275; 84134; 87071; 87075; 87205; 99212 ×2; J7050; Q4101

== ENCOUNTER 2020-07-06 14:37 | Outpatient (RCR) | payer OTHER ==
[~2020-07-06 14:37] MED LIST changes: +LIDOCAINE VISC 2% SOLN 15 ML UDC ONE; +SILVER SULFADIAZINE 50GM CREAM ONE; -SODIUM CHLORIDE 0.9% INJ 250 ML BAG ONE
== END 2020-07-08 ==
LOC: WCC 14:37
PROVIDERS: ATTEND Podiatrist
DX: S91.201A Unspecified open wound of right great toe with damage to nail, initial encounter (principal); S92.411A Displaced fracture of proximal phalanx of right great toe, initial encounter for closed fracture; S92.511A Displaced fracture of proximal phalanx of right lesser toe(s), initial encounter for closed fracture; S93.114A Dislocation of interphalangeal joint of right lesser toe(s), initial encounter; L60.9 Nail disorder, unspecified; M24.576 Contracture, unspecified foot; X58.XXXA Exposure to other specified factors, initial encounter; Z01.810 Encounter for preprocedural cardiovascular examination
CPT/HCPCS: 87071; 87075; 87205

== ENCOUNTER → 2020-07-14 | Outpatient (CLI) | payer OTHER ==
[~2020-07-14] MED LIST changes: -LIDOCAINE VISC 2% SOLN 15 ML UDC ONE; -LIDOCAINE/PRILOCAINE 2.5-2.5% KIT ONE; -SILVER SULFADIAZINE 50GM CREAM ONE
== END ==
LOC: RAD 08:18
PROVIDERS: ATTEND Podiatrist
DX: S91.201A Unspecified open wound of right great toe with damage to nail, initial encounter (principal)

== ENCOUNTER → 2020-07-29 | Outpatient (CLI) | payer OTHER | LOC: MRI 09:27 | PROVIDERS: ATTEND Podiatrist | DX: S91.101A Unspecified open wound of right great toe without damage to nail, initial encounter (principal) ==

== ENCOUNTER 2020-08-05 08:23 | Outpatient (RCR) | payer OTHER ==
[~2020-08-05 08:23] MED LIST changes: +LIDOCAINE VISC 2% SOLN 15 ML UDC ONE; +LIDOCAINE/PRILOCAINE 2.5-2.5% KIT ONE
[2020-08-05 09:47] LABS: BASOPHILS % 0.5 % (0.0-1.0); EOSINOPHILS # (AUTO) 0.1 (0.0-0.4); EOSINOPHILS % 1.5 % (0.0-6.0); HEMATOCRIT 53.4 % (38.2-49.6); HEMOGLOBIN 17.7 g/dL (14.0-18.0); LYMPHOCYTES # (AUTO) 2.2 (1.0-3.2); LYMPHOCYTES % 30.3 % (18.0-39.1); MEAN CORPUSCULAR HGB CONC 33.1 g/dL (31-35); MEAN CORPUSCULAR VOLUME 87.5 fL (81-99); MONOCYTES # (AUTO) 0.4 (0.2-0.8); MONOCYTES % 5.9 % (4.4-11.3); NEUTROPHILS # (AUTO) 4.5 (2.1-6.9); NEUTROPHILS % 61.5 % (38.7-80.0); PLATELET COUNT 222 x10e3/uL (140-360); RED CELL DISTRIBUTION WIDTH 13.7 % (11.7-14.4)
[2020-08-05 10:07] LABS: ALANINE AMINOTRANSFERASE 16 IU/L (0-55); ALBUMIN/GLOBULIN RATIO 1.4 (0.8-2.0); ALKALINE PHOSPHATASE 113 IU/L (40-150); ANION GAP 15.2 mmol/L (8-16); BLOOD UREA NITROGEN 17 mg/dL (7-26); BUN/CREATININE RATIO 20 (6-25); CALCIUM 9.9 mg/dL (8.4-10.2); CARBON DIOXIDE 20 mmol/L (22-29); CHLORIDE 109 mmol/L (98-107); CREATININE, SERUM 0.84 mg/dL (0.72-1.25); EST GLOMERULAR FILTRATION RATE > 60 ML/MIN (60-); GLUCOSE 130 mg/dL (74-118); POTASSIUM 4.2 mmol/L (3.5-5.1); SODIUM 140 mmol/L (136-145)
== END 2020-08-08 ==
LOC: WCC 08:23
PROVIDERS: ATTEND Internal Medicine Infectious Disease
DX: L89.892 Pressure ulcer of other site, stage 2 (principal); S92.411A Displaced fracture of proximal phalanx of right great toe, initial encounter for closed fracture; S92.511A Displaced fracture of proximal phalanx of right lesser toe(s), initial encounter for closed fracture; S91.201A Unspecified open wound of right great toe with damage to nail, initial encounter; S91.101A Unspecified open wound of right great toe without damage to nail, initial encounter; S93.114A Dislocation of interphalangeal joint of right lesser toe(s), initial encounter; B96.89 Other specified bacterial agents as the cause of diseases classified elsewhere; X58.XXXA Exposure to other specified factors, initial encounter; Z01.810 Encounter for preprocedural cardiovascular examination
CPT/HCPCS: 10060; 36415; 80053; 83036; 84134; 85025; 85651; 87071; 87075; 87205

== ENCOUNTER → 2020-09-07 | Outpatient (RCR) | payer OTHER ==
[~2020-09-07] MED LIST changes: +GENTAMICIN SULFATE 15 GM CR TP ONE; -LIDOCAINE VISC 2% SOLN 15 ML UDC ONE
== END ==
LOC: WCC 08-10 13:12
PROVIDERS: ATTEND Podiatrist
DX: M86.68 Other chronic osteomyelitis, other site (principal); S91.201A Unspecified open wound of right great toe with damage to nail, initial encounter; S92.411A Displaced fracture of proximal phalanx of right great toe, initial encounter for closed fracture; S92.511A Displaced fracture of proximal phalanx of right lesser toe(s), initial encounter for closed fracture; S93.114A Dislocation of interphalangeal joint of right lesser toe(s), initial encounter; X58.XXXA Exposure to other specified factors, initial encounter; Z01.810 Encounter for preprocedural cardiovascular examination

== ENCOUNTER → 2020-09-09 | Outpatient (CLI) | payer OTHER ==
[~2020-09-09] MED LIST changes: -GENTAMICIN SULFATE 15 GM CR TP ONE; -LIDOCAINE/PRILOCAINE 2.5-2.5% KIT ONE
[2020-09-09 10:27] LABS: CREATININE, SERUM 0.87 mg/dL (0.72-1.25)
[2020-09-09 10:40] LABS: INR 0.96; PROTHROMBIN TIME 13.4 seconds (11.9-14.5)
[2020-09-09 10:41] LABS: PARTIAL THROMBOPLASTIN TIME 26.9 seconds (23.8-35.5)
== END ==
LOC: DX 09:35
PROVIDERS: ATTEND Internal Medicine Infectious Disease
DX: M86.68 Other chronic osteomyelitis, other site (principal)
CPT/HCPCS: 36415; 36569; 71045; 82565; 84520; 85610; 85730

== ENCOUNTER 2020-10-07 15:23 | Outpatient (RCR) | payer OTHER ==
[~2020-10-07 15:23] MED LIST changes: +GENTAMICIN SULFATE 15 GM CR TP ONE; +LIDOCAINE VISC 2% SOLN 15 ML UDC ONE; +LIDOCAINE/PRILOCAINE 2.5-2.5% KIT ONE
== END 2020-10-08 ==
LOC: WCC 15:23
PROVIDERS: ATTEND Internal Medicine Infectious Disease
DX: M86.68 Other chronic osteomyelitis, other site (principal); S91.201A Unspecified open wound of right great toe with damage to nail, initial encounter; S92.411A Displaced fracture of proximal phalanx of right great toe, initial encounter for closed fracture; S92.511A Displaced fracture of proximal phalanx of right lesser toe(s), initial encounter for closed fracture; S93.114A Dislocation of interphalangeal joint of right lesser toe(s), initial encounter; X58.XXXA Exposure to other specified factors, initial encounter; Z01.810 Encounter for preprocedural cardiovascular examination
CPT/HCPCS: 11042 ×4; 93005; 99211; 99213; G0277 ×3

== ENCOUNTER → 2020-11-08 | Outpatient (RCR) | payer OTHER ==
[~2020-11-08] MED LIST changes: -LIDOCAINE VISC 2% SOLN 15 ML UDC ONE
== END ==
LOC: WCC 10-10 10:10
PROVIDERS: ATTEND Podiatrist
DX: S91.201A Unspecified open wound of right great toe with damage to nail, initial encounter (principal); M86.68 Other chronic osteomyelitis, other site; S92.411A Displaced fracture of proximal phalanx of right great toe, initial encounter for closed fracture; S92.511A Displaced fracture of proximal phalanx of right lesser toe(s), initial encounter for closed fracture; S93.114A Dislocation of interphalangeal joint of right lesser toe(s), initial encounter; X58.XXXA Exposure to other specified factors, initial encounter; Z01.810 Encounter for preprocedural cardiovascular examination
CPT/HCPCS: 11042 ×4; 99211; 99212 ×5; G0277 ×20

== ENCOUNTER 2020-12-07 12:55 | Outpatient (RCR) | payer OTHER ==
[~2020-12-07 12:55] MED LIST changes: -GENTAMICIN SULFATE 15 GM CR TP ONE; -LIDOCAINE/PRILOCAINE 2.5-2.5% KIT ONE
== END 2020-12-08 ==
LOC: WCC 12:55
PROVIDERS: ATTEND Plastic Surgery
DX: S91.201A Unspecified open wound of right great toe with damage to nail, initial encounter (principal); S92.411A Displaced fracture of proximal phalanx of right great toe, initial encounter for closed fracture; S92.511A Displaced fracture of proximal phalanx of right lesser toe(s), initial encounter for closed fracture; S93.114A Dislocation of interphalangeal joint of right lesser toe(s), initial encounter; X58.XXXA Exposure to other specified factors, initial encounter; Z01.810 Encounter for preprocedural cardiovascular examination
CPT/HCPCS: 11042 ×2; 12020; 99212 ×2; 99213; G0277 ×7

== ENCOUNTER → 2020-12-20 | Day surgery (SDC) | payer OTHER ==
[~2020-12-20] MED LIST changes: +ACETAMINOPHEN-1 EAC4 PO; +BUPIVACAINE 0.25% 30ML SDV ONE; +MUPIROCIN 2% OINT 22 GM TUBE ONE; +SODIUM CHLORIDE 0.9% 50ML 50 ML ONE
[2020-12-20 08:20] VITALS: BP 114/76
== END | disposition home or self-care (01) ==
LOC: OR 06:22
PROVIDERS: ATTEND Plastic Surgery
DX: S97.11 Crushing injury of great toe (principal); S91.101S Unspecified open wound of right great toe without damage to nail, sequela; M86.671 Other chronic osteomyelitis, right ankle and foot; F17.210 Nicotine dependence, cigarettes, uncomplicated; Z01.810 Encounter for preprocedural cardiovascular examination; Z01.812 Encounter for preprocedural laboratory examination; Z20.822 Contact with and (suspected) exposure to COVID-19
CPT/HCPCS: 14040; 20900; 28124; 93005; C1713 ×2; J0690; U0002

== ENCOUNTER 2021-01-05 13:46 | Outpatient (RCR) | payer OTHER ==
[~2021-01-05 13:46] MED LIST changes: -BUPIVACAINE 0.25% 30ML SDV ONE; -SODIUM CHLORIDE 0.9% 50ML 50 ML ONE
== END 2021-01-08 ==
LOC: WCC 13:46
PROVIDERS: ATTEND Podiatrist
DX: S91.201A Unspecified open wound of right great toe with damage to nail, initial encounter (principal); S92.411A Displaced fracture of proximal phalanx of right great toe, initial encounter for closed fracture; S92.511A Displaced fracture of proximal phalanx of right lesser toe(s), initial encounter for closed fracture; S93.114A Dislocation of interphalangeal joint of right lesser toe(s), initial encounter; X58.XXXA Exposure to other specified factors, initial encounter; Z01.810 Encounter for preprocedural cardiovascular examination

== ENCOUNTER 2021-02-06 09:29 | Outpatient (RCR) | payer OTHER ==
[2021-01-16 11:07] LABS: BASOPHILS # (AUTO) 0.1 (0.0-0.1); BASOPHILS % 0.7 % (0.0-1.0); EOSINOPHILS # (AUTO) 0.1 (0.0-0.4); HEMATOCRIT 54.7 % (38.2-49.6); HEMOGLOBIN 18.5 g/dL (14.0-18.0); LYMPHOCYTES # (AUTO) 2.2 (1.0-3.2); LYMPHOCYTES % 31.4 % (18.0-39.1); MEAN CORPUSCULAR HEMOGLOBIN 29.3 pg (28-32); MEAN CORPUSCULAR HGB CONC 33.8 g/dL (31-35); MEAN CORPUSCULAR VOLUME 86.7 fL (81-99); MONOCYTES # (AUTO) 0.4 (0.2-0.8); NEUTROPHILS # (AUTO) 4.3 (2.1-6.9); NEUTROPHILS % 61.6 % (38.7-80.0); PLATELET COUNT 246 x10e3/uL (140-360); RED BLOOD COUNT 6.31 x10e6/uL (4.3-5.7); RED CELL DISTRIBUTION WIDTH 13.3 % (11.7-14.4)
[2021-01-16 11:26] LABS: ALBUMIN 4.1 g/dL (3.5-5.0); ALBUMIN/GLOBULIN RATIO 1.3 (0.8-2.0); CREATININE, SERUM 0.83 mg/dL (0.72-1.25)
[2021-01-16 11:53] LABS: CALCIUM 10.5 mg/dL (8.4-10.2)
== END 2021-02-07 ==
LOC: WCC 09:29
PROVIDERS: ATTEND Plastic Surgery
DX: S91.201A Unspecified open wound of right great toe with damage to nail, initial encounter (principal); S92.411A Displaced fracture of proximal phalanx of right great toe, initial encounter for closed fracture; S92.511A Displaced fracture of proximal phalanx of right lesser toe(s), initial encounter for closed fracture; S93.114A Dislocation of interphalangeal joint of right lesser toe(s), initial encounter; X58.XXXA Exposure to other specified factors, initial encounter; Z01.810 Encounter for preprocedural cardiovascular examination
CPT/HCPCS: 15275; 36415; 80053; 84134; 85025; 99212 ×5; Q4101

== ENCOUNTER 2021-03-01 14:40 | Outpatient (RCR) | payer OTHER ==
[~2021-03-01 14:40] MED LIST changes: +LIDOCAINE/PRILOCAINE 2.5-2.5% KIT ONE; -MUPIROCIN 2% OINT 22 GM TUBE ONE
== END 2021-03-10 ==
LOC: WCC 14:40
PROVIDERS: ATTEND Plastic Surgery
DX: S91.201A Unspecified open wound of right great toe with damage to nail, initial encounter (principal); S93.114A Dislocation of interphalangeal joint of right lesser toe(s), initial encounter; S92.511A Displaced fracture of proximal phalanx of right lesser toe(s), initial encounter for closed fracture; S92.411A Displaced fracture of proximal phalanx of right great toe, initial encounter for closed fracture; Z01.810 Encounter for preprocedural cardiovascular examination; X58.XXXA Exposure to other specified factors, initial encounter

== ENCOUNTER 2021-04-05 12:59 | Outpatient (RCR) | payer OTHER | END 2021-04-10 | LOC: WCC 12:59 | PROVIDERS: ATTEND Podiatrist | DX: S91.201A Unspecified open wound of right great toe with damage to nail, initial encounter (principal); S92.411A Displaced fracture of proximal phalanx of right great toe, initial encounter for closed fracture; S92.511A Displaced fracture of proximal phalanx of right lesser toe(s), initial encounter for closed fracture; S93.114A Dislocation of interphalangeal joint of right lesser toe(s), initial encounter; X58.XXXA Exposure to other specified factors, initial encounter; Z01.810 Encounter for preprocedural cardiovascular examination ==

== ENCOUNTER → 2021-04-28 | Day surgery (SDC) | payer OTHER ==
[~2021-04-28] MED LIST changes: +BUPIVACAINE HCL 0.5% INJ 30 ML VIAL INJ ONE; +FENTANYL CITRATE/PF 100MCG/2 ML INJ ONE; +LIDOCAINE HCL 1% LOCAL INJ 20 ML VIAL ONE; -LIDOCAINE/PRILOCAINE 2.5-2.5% KIT ONE; +MIDAZOLAM HCL 2 MG/2 ML VIAL ONE; +MUPIROCIN 2% OINT 22 GM TUBE ONE; +SODIUM CHLORIDE 0.9% 50ML 100 ML ONE; +TRAMADOL HCL 50 MG TAB ONE
[2021-04-28 14:35] VITALS: BP 108/86
== END | disposition home or self-care (01) ==
LOC: OR 08:56
PROVIDERS: ATTEND Podiatrist
DX: S97.81XA Crushing injury of right foot, initial encounter (principal); S92.411A Displaced fracture of proximal phalanx of right great toe, initial encounter for closed fracture; L97.518 Non-pressure chronic ulcer of other part of right foot with other specified severity; F17.200 Nicotine dependence, unspecified, uncomplicated; X58.XXXA Exposure to other specified factors, initial encounter; Y92.89 Other specified places as the place of occurrence of the external cause; Z01.810 Encounter for preprocedural cardiovascular examination; Z01.812 Encounter for preprocedural laboratory examination; Z20.822 Contact with and (suspected) exposure to COVID-19
CPT/HCPCS: 87071; 87075; 87205; 88304; 88305; 88311; 93005; J0690; J2001; J2250; J3010; U0002

== ENCOUNTER 2021-05-03 14:13 | Outpatient (RCR) | payer OTHER ==
[2021-04-12 16:35] LABS: BASOPHILS % 0.4 % (0.0-1.0); EOSINOPHILS # (AUTO) 0.1 (0.0-0.4); EOSINOPHILS % 1.7 % (0.0-6.0); HEMATOCRIT 52.5 % (38.2-49.6); HEMOGLOBIN 17.3 g/dL (14.0-18.0); LYMPHOCYTES # (AUTO) 2.5 (1.0-3.2); LYMPHOCYTES % 32.6 % (18.0-39.1); MEAN CORPUSCULAR HEMOGLOBIN 29.3 pg (28-32); MEAN CORPUSCULAR VOLUME 88.8 fL (81-99); MONOCYTES # (AUTO) 0.4 (0.2-0.8); MONOCYTES % 5.4 % (4.4-11.3); NEUTROPHILS # (AUTO) 4.5 (2.1-6.9); NEUTROPHILS % 59.6 % (38.7-80.0); PLATELET COUNT 248 x10e3/uL (140-360); RED BLOOD COUNT 5.91 x10e6/uL (4.3-5.7); RED CELL DISTRIBUTION WIDTH 12.8 % (11.7-14.4)
[2021-04-12 16:53] LABS: ALBUMIN 3.8 g/dL (3.5-5.0); ALBUMIN/GLOBULIN RATIO 1.3 (0.8-2.0); ANION GAP 13.7 mmol/L (8-16); CALCIUM 10.2 mg/dL (8.4-10.2); CREATININE, SERUM 0.85 mg/dL (0.72-1.25); POTASSIUM 3.7 mmol/L (3.5-5.1)
[~2021-05-03 14:13] MED LIST changes: -BUPIVACAINE HCL 0.5% INJ 30 ML VIAL INJ ONE; -FENTANYL CITRATE/PF 100MCG/2 ML INJ ONE; +GENTAMICIN SULFATE 15 GM CR TP ONE; -LIDOCAINE HCL 1% LOCAL INJ 20 ML VIAL ONE; -MIDAZOLAM HCL 2 MG/2 ML VIAL ONE; -MUPIROCIN 2% OINT 22 GM TUBE ONE; -SODIUM CHLORIDE 0.9% 50ML 100 ML ONE; -TRAMADOL HCL 50 MG TAB ONE
== END 2021-05-08 ==
LOC: WCC 14:13
PROVIDERS: ATTEND Podiatrist
DX: S91.201A Unspecified open wound of right great toe with damage to nail, initial encounter (principal); S92.411A Displaced fracture of proximal phalanx of right great toe, initial encounter for closed fracture; S92.511A Displaced fracture of proximal phalanx of right lesser toe(s), initial encounter for closed fracture; S93.114A Dislocation of interphalangeal joint of right lesser toe(s), initial encounter; X58.XXXA Exposure to other specified factors, initial encounter; Z01.810 Encounter for preprocedural cardiovascular examination
CPT/HCPCS: 36415; 80053; 85025

== ENCOUNTER 2021-06-07 13:13 | Outpatient (RCR) | payer OTHER ==
[~2021-06-07 13:13] MED LIST changes: -GENTAMICIN SULFATE 15 GM CR TP ONE; +LIDOCAINE VISC 2% SOLN 15 ML UDC ONE
== END 2021-06-08 ==
LOC: WCC 13:13
PROVIDERS: ATTEND Podiatrist
DX: T87.89 Other complications of amputation stump (principal); S92.411A Displaced fracture of proximal phalanx of right great toe, initial encounter for closed fracture; S92.511A Displaced fracture of proximal phalanx of right lesser toe(s), initial encounter for closed fracture; S93.114A Dislocation of interphalangeal joint of right lesser toe(s), initial encounter; Y83.5 Amputation of limb(s) as the cause of abnormal reaction of the patient, or of later complication, without mention of misadventure at the time of the procedure; X58.XXXA Exposure to other specified factors, initial encounter; Z01.810 Encounter for preprocedural cardiovascular examination

== ENCOUNTER 2021-07-26 16:11 | Outpatient (RCR) | payer OTHER ==
[~2021-07-26 16:11] MED LIST changes: -LIDOCAINE VISC 2% SOLN 15 ML UDC ONE
== END 2021-08-08 ==
LOC: WCC 16:11
PROVIDERS: ATTEND Podiatrist
DX: S92.411A Displaced fracture of proximal phalanx of right great toe, initial encounter for closed fracture (principal); S92.511A Displaced fracture of proximal phalanx of right lesser toe(s), initial encounter for closed fracture; S93.114A Dislocation of interphalangeal joint of right lesser toe(s), initial encounter; Y83.5 Amputation of limb(s) as the cause of abnormal reaction of the patient, or of later complication, without mention of misadventure at the time of the procedure; X58.XXXA Exposure to other specified factors, initial encounter; Z01.810 Encounter for preprocedural cardiovascular examination